=== PATIENT | male | born 1980 | race Caucasian/White ===

== ENCOUNTER 2020-05-22 13:31 | Outpatient (CLI) | payer OTHER, SELFPAY ==
--- NOTE | 2020-05-22 14:30 | NEURO_ITS ---
Patient Number: [id number] Impression: # Complains of numbness of hands. # Mild right Carpal Tunnel Syndrome. # Evolving left Carpal Tunnel Syndrome. # No ulnar neuropathy. # Normal needle/EMG exam. # Right median proximal velocity relatively slowing could be Pronator Teres Syndrome but at this stage not very diagnostic. Nerve Conduction Studies Anti Sensory Summary Table Stim Site NR Peak (ms) P-T Amp (?V) Site1 Site2 Delta-P (ms) Dist (cm) Baljit (m/s) Left Median Anti Sensory (2-3nd Digit) Wrist 2.5 92.7 Wrist 2-3nd Digit 2.5 14.0 56 Wrist 2.6 77.3 Wrist 2-3nd Digit 2.5 14.0 56 Right Median Anti Sensory (2-3nd Digit) Wrist 3.9 20.7 Wrist 2-3nd Digit 3.9 14.0 36 Wrist 2.9 4.4 Wrist 2-3nd Digit 3.9 14.0 36 Left Radial Anti Sensory (Base 1st Digit) Wrist 1.5 47.8 Wrist Base 1st Digit 1.5 0.0 Right Radial Anti Sensory (Base 1st Digit) Wrist 1.7 40.8 Wrist Base 1st Digit 1.7 0.0 Left Ulnar Anti Sensory (5th Digit) Wrist 2.3 58.6 Wrist 5th Digit 2.3 14.0 61 Right Ulnar Anti Sensory (5th Digit) Wrist 2.0 76.1 Wrist 5th Digit 2.0 14.0 70 Motor Summary Table Stim Site NR Onset (ms) O-P Amp (mV) Site1 Site2 Delta-0 (ms) Dist (cm) Baljit (m/s) Left Median Motor (Abd Poll Brev) Wrist 3.6 5.2 Elbow Wrist 4.3 28.0 65 Elbow 7.9 4.6 Right Median Motor (Abd Poll Brev) Wrist 3.1 6.6 Elbow Wrist 6.1 30.0 49 Elbow 9.2 2.5 Left Ulnar Motor (Abd Dig Minimi) Wrist 2.7 4.7 A Elbow Wrist 4.3 27.0 63 A Elbow 7.0 4.0 Right Ulnar Motor (Abd Dig Minimi) Wrist 2.2 7.8 A Elbow Wrist 4.4 29.0 66 A Elbow 6.6 7.2 F Wave Studies NR F-Lat (ms) L-R F-Lat (ms) Left Median (Mrkrs) (Abd Poll Brev) 25.78 3.13 Right Median (Mrkrs) (Abd Poll Brev) 28.91 3.13 Left Ulnar (Mrkrs) (Abd Dig Min) 26.58 1.38 Right Ulnar (Mrkrs) (Abd Dig Min) 25.20 1.38 EMG Side Muscle Nerve Root Ins Act Fibs Amp Dur Recrt Comment Right 1stDorInt Ulnar C8-T1 Nml Nml Nml Nml Nml Right Ext Indicis Radial (Post Int) C7-8 Nml Nml Nml Nml Nml Right Ext Digitorum Radial (Post Int) C7-8 Nml Nml Nml Nml Nml Right BrachioRad Radial C5-6 Nml Nml Nml Nml Nml Right PronatorTeres Median C6-7 Nml Nml Nml Nml Nml Right Abd Poll Brev Median C8-T1 Nml Nml Nml Nml Nml Left 1stDorInt Ulnar C8-T1 Nml Nml Nml Nml Nml Left Ext Indicis Radial (Post Int) C7-8 Nml Nml Nml Nml Nml Left Ext Digitorum Radial (Post Int) C7-8 Nml Nml Nml Nml Nml Left BrachioRad Radial C5-6 Nml Nml Nml Nml Nml Left PronatorTeres Median C6-7 Nml Nml Nml Nml Nml Left Abd Poll Brev Median C8-T1 Nml Nml Nml Nml Nml Right ABD Dig Min Ulnar C8-T1 Nml Nml Nml Nml Nml Left ABD Dig Min Ulnar C8-T1 Nml Nml Nml Nml Nml MTDD
== END 2020-05-22 13:32 | disposition home or self-care (01) ==
PROVIDERS: PCP Physician Assistant; Visit Provider Physician Assistant
DX: R20.0 Anesthesia of skin (principal); R20.2 Paresthesia of skin; G56.03 Carpal tunnel syndrome, bilateral upper limbs
CPT/HCPCS: 95886; 95911

== ENCOUNTER 2021-04-28 09:45 | Outpatient (CLI) | payer OTHER, SELFPAY ==
[2021-04-28 10:06] LABS: Hematocrit 49.9 % (42.0-52.0); Hemoglobin 16.9 g/dL (14.0-18.0); Mean Corpuscular HGB Conc 33.9 g/dl (32-36); Mean Corpuscular Volume 91.6 fl (80-100); Mean Platelet Volume 9.7 fl (7.4-10.4); Platelet Count Result 223 k/mm3 (150-375); Red Blood Count 5.45 M/mm3 (4.6-6.20); Red Cell Distribution Width 12.7 % (11.5-14.5); White Blood Count 7.8 K/mm3 (4.5-10.0)
[2021-04-28 10:52] LABS: Vitamin D 25 Hydroxy 54.8 ng/mL
[2021-04-28 11:36] LABS: Alanine Aminotransferase 38 U/L (4-50); Albumin Level 4.4 g/dL (3.5-5.1); Alkaline Phosphatase 62 U/L (38-126); Anion Gap 9 mmol/L (8-16); Aspartate Amino Transferase 38 U/L (17-59); Bilirubin,Total 0.7 mg/dL (0.2-1.3); Blood Urea Nitrogen 11 mg/dL (9-20); Carbon Dioxide 27 mmol/L (22-30); Chloride 100 mmol/L (98-107); Estimated Glomerular Filt Rate > 60; Glucose 90 mg/dL (75-110); Potassium 4.5 mmol/L (3.4-5.0); Sodium 136 mmol/L (137-145)
[2021-04-28 12:08] LABS: Prostate Specific Antigen 0.9 ng/mL (< OR = 4.0)
== END 2021-04-28 09:46 | disposition home or self-care (01) ==
LOC: ANHLAB 09:47
PROVIDERS: PCP Internal Medicine; Visit Provider Physician Assistant
DX: Z00.00 Encounter for general adult medical examination without abnormal findings (principal); Z12.5 Encounter for screening for malignant neoplasm of prostate; E55.9 Vitamin D deficiency, unspecified
CPT/HCPCS: 36415; 80053; 82306; 82607; 82746; 84153; 84443; 85027; G0103

== ENCOUNTER 2022-05-14 09:55 | Outpatient (CLI) | payer OTHER, SELFPAY ==
[2022-05-14 10:27] LABS: Basophils Absolute Auto 0.1 K/mm3 (0.0-0.1); Eosinophils Absolute Auto 0.3 K/mm3 (0-0.3); Eosinophils Percent Auto 4.6 % (0-4.4); Hematocrit 47.5 % (42.0-52.0); Hemoglobin 16.6 g/dL (14.0-18.0); Immature Granulocyte Absolute 0.05 K/mm3 (0.00-0.031); Immature Granulocyte Percent A 0.8 % (0-0.5); Lymphocytes Absolute Auto 1.71 K/mm3 (0.9-3.2); Lymphocytes Percent Auto 26.9 % (18.3-44.2); Mean Corpuscular HGB Conc 34.9 g/dl (32-36); Mean Corpuscular Hemoglobin 31.3 pg (26-34); Mean Corpuscular Volume 89.6 fl (80-100); Monocytes Absolute Auto 0.4 K/mm3 (0.1-0.6); Monocytes Percent Auto 6.8 % (2.6-8.5); Neutrophils Absolute Auto 3.8 K/mm3 (1.3-6.7); Neutrophils Percent Auto 58.9 % (45.5-73.1); Platelet Count Result 235 k/mm3 (150-375); Red Cell Distribution Width 12.6 % (11.5-14.5); White Blood Count 6.4 K/mm3 (4.5-10.0)
[2022-05-14 10:37] LABS: Alanine Aminotransferase 32 U/L (6-50); Albumin Level 4.4 g/dL (3.5-5.1); Alkaline Phosphatase 50 U/L (38-126); Anion Gap 9 mmol/L (8-16); Aspartate Amino Transferase 27 U/L (17-59); Bilirubin,Total 0.8 mg/dL (0.2-1.3); Blood Urea Nitrogen 15 mg/dL (9-20); Calcium 9.2 mg/dL (8.4-10.2); Carbon Dioxide 27 mmol/L (22-30); Chloride 104 mmol/L (98-107); Estimated Glomerular Filt Rate > 60; Glucose 99 mg/dL (65-110); Potassium 4.3 mmol/L (3.4-5.0); Sodium 140 mmol/L (137-145)
[2022-05-14 11:40] LABS: Folic Acid 11.4 ng/mL (2.76->20)
== END 2022-05-14 09:56 | disposition home or self-care (01) ==
LOC: ANHLAB 09:56
PROVIDERS: PCP Physician Assistant; Visit Provider Physician Assistant
DX: Z12.5 Encounter for screening for malignant neoplasm of prostate (principal); Z00.00 Encounter for general adult medical examination without abnormal findings
CPT/HCPCS: 36415; 80053; 82607; 82746; 84153; 84443; 85025; G0103

== ENCOUNTER 2023-01-31 16:44 | Outpatient (CLI) | payer OTHER, SELFPAY ==
[2023-01-31 17:50] LABS: Strep Group A RT-PCR NOT DETECTED (Negative)
[2023-01-31 18:01] LABS: SARS-CoV-2 RNA PCR Negative
== END 2023-01-31 16:45 | disposition home or self-care (01) ==
LOC: ANHLAB 16:45
PROVIDERS: PCP Physician Assistant; Visit Provider Physician Assistant
DX: J02.9 Acute pharyngitis, unspecified (principal)
CPT/HCPCS: 87651; U0003; U0005

== ENCOUNTER 2023-06-10 09:37 | Outpatient (CLI) | payer OTHER, SELFPAY ==
[2023-06-10 09:59] LABS: Basophils Absolute Auto 0.1 K/mm3 (0.0-0.1); Basophils Percent Auto 1.3 % (0.2-1.2); Eosinophils Absolute Auto 0.4 K/mm3 (0-0.3); Eosinophils Percent Auto 5.6 % (0-4.4); Hematocrit 46.7 % (42.0-52.0); Hemoglobin 16.3 g/dL (14.0-18.0); Immature Granulocyte Absolute 0.14 K/mm3 (0.00-0.031); Immature Granulocyte Percent A 1.8 % (0-0.5); Lymphocytes Absolute Auto 1.77 K/mm3 (0.9-3.2); Lymphocytes Percent Auto 23.2 % (18.3-44.2); Mean Corpuscular HGB Conc 34.9 g/dl (32-36); Mean Corpuscular Hemoglobin 30.9 pg (26-34); Mean Corpuscular Volume 88.4 fl (80-100); Mean Platelet Volume 9.8 fl (7.4-10.4); Monocytes Absolute Auto 0.5 K/mm3 (0.1-0.6); Monocytes Percent Auto 5.9 % (2.6-8.5); Neutrophils Absolute Auto 4.7 K/mm3 (1.3-6.7); Neutrophils Percent Auto 62.2 % (45.5-73.1); Platelet Count Result 198 k/mm3 (150-375); Red Blood Count 5.28 M/mm3 (4.6-6.20); Red Cell Distribution Width 11.9 % (11.5-14.5); White Blood Count 7.6 K/mm3 (4.5-10.0)
[2023-06-10 10:41] LABS: Alanine Aminotransferase 53 U/L (6-50); Albumin Level 4.5 g/dL (3.5-5.1); Alkaline Phosphatase 57 U/L (38-126); Anion Gap 10 mmol/L (8-16); Aspartate Amino Transferase 37 U/L (17-59); Bilirubin,Total 0.6 mg/dL (0.2-1.3); Blood Urea Nitrogen 9 mg/dL (9-20); Calcium 8.9 mg/dL (8.4-10.2); Carbon Dioxide 26 mmol/L (22-30); Chloride 104 mmol/L (98-107); Cholesterol 214 mg/dL (0-200); Estimated Glomerular Filt Rate > 60; Glucose 99 mg/dL (65-110); HDL Direct 39 mg/dL; LDL Cholesterol Direct 137 mg/dL; Potassium 3.9 mmol/L (3.4-5.0); Sodium 140 mmol/L (137-145); Triglycerides 174 mg/dL (<150)
[2023-06-10 10:54] LABS: Prostate Specific Antigen 0.9 ng/mL (< OR = 4.0)
[2023-06-10 11:30] LABS: Folic Acid 19.2 ng/mL (2.76->20)
[2023-06-10 15:09] LABS: Vitamin D 25 Hydroxy 45.1 ng/mL
== END 2023-06-10 09:38 | disposition home or self-care (01) ==
LOC: ANHLAB 09:40
PROVIDERS: PCP Physician Assistant; Visit Provider Physician Assistant
DX: Z00.00 Encounter for general adult medical examination without abnormal findings (principal); Z12.5 Encounter for screening for malignant neoplasm of prostate; E55.9 Vitamin D deficiency, unspecified
CPT/HCPCS: 36415; 80053; 80061; 82306; 82607; 82746; 84153; 84443; 85025; G0103

== ENCOUNTER 2023-06-30 09:44 | Outpatient (CLI) | payer OTHER, SELFPAY ==
--- NOTE | 2023-07-25 14:22 | WPDSLEEPSTUD ---
Sleep Study Date of Study: 06/30/23 Ordering Provider: Kar Matta PA-C Interpreting Physician: Patti Menon DO Sleep Study Type: Split Polysomnogram Height: 1.7 m Weight: 92.986 kg Body Mass Index: 32.1 Neck Circumference (inches): 16 [place]: 19 Reason for Sleep Study Diagnosed with ANITA in 2012. Daytime hypersomnia and difficulty staying/maintaining sleep despite PAP use. Sleep History The patient is a 43-year-old male with hypertension, GERD, irritable bowel syndrome, low testosterone, history of tobacco use and previously diagnosed sleep apnea that had a sleep study ordered by his primary care to optimize his PAP settings. the patient constantly awakens from sleep short of breath. He frequently awakens at night with heartburn, belching or cough. He constantly snores loudly enough that others complain. He constantly has trouble sleeping when he has a cold. He frequently wakes up gasping for air throughout the night. He frequently has breathing problems at night observed by himself or others. He constantly sweats excessively at night. He frequently has heart palpitations or irregular heartbeats during the night. He constantly falls asleep during the day but never while driving. He denies cataplexy. He constantly has trouble at school or work due to sleepiness. He occasionally feels unable to move when waking up or falling asleep. He constantly experiences vivid dreamlike scenes upon awakening or falling asleep. He denies feeling afraid of going to sleep. He constantly has nightmares and frequently remembers his dreams. He constantly has thoughts racing through his mind. He rarely feels sad or depressed. He occasionally has anxiety. He constantly has muscular tension. He frequently notices parts of his body jerk. He occasionally kicks during the night. He occasionally has crawling and aching feelings in his legs and occasionally has leg pain during the night. He rarely grinds his teeth during sleep. He frequently is bothered by pain during the day but rarely awakened by pain during the night. He occasionally wakes up feeling stiff in the morning. He constantly wakes up with sore or achy muscles. He constantly wakes up with pain in the neck, spine or other joints. He goes to bed between 10-11 p.m. on weekdays and between 11:00 p.m. to 1:00 a.m. on the weekends. He can take him several hours to fall asleep. He wakes up 4-6 times throughout the night for unknown reasons in a can take up to several hours to fall back asleep. He wakes up at 7:00 a.m. on weekdays and between 11 a.m. to noon on the weekends. He typically gets 4-6 hours of sleep per night. He will stay in bed for 15 minutes after waking up in the morning on weekdays and will stay several hours in bed on the weekends. He currently lives with his and 2 children. He will consume caffeinated soda within 2 hours of bedtime. He denies engaging in physical exercise before bedtime. He will watch television before falling asleep. He will take naps in the afternoon or the evening but they are not refreshing. He consumes 3 cans of caffeinated soda per day. He denies tobacco, alcohol and recreational drug use. [facility] Family History Family History Father Family history of throat cancer Social History Social History Smoking status: Former smoker Second hand tobacco smoke exposure: No Smoking end date: 10/17/15 Alcohol intake: never Substance use: never Current Housing: Decline to Answer Concerned About Future Housing: Decline to Answer Difficulty Paying Gas/Electric Bills: Decline to Answer Difficulty Paying for Meds: Decline to Answer Currently Unemployed: Decline to Answer Education: Decline to Answer Difficulty w/ Childcare or Family Care: Decline to Answer Medications Home Medications Medic
[2023-07-25 14:29] VITALS: BMI 32.1
== END 2023-07-01 07:10 | disposition home or self-care (01) ==
LOC: ANHCSM 09:44
PROVIDERS: PCP Physician Assistant; Visit Provider Physician Assistant
DX: G47.10 Hypersomnia, unspecified (principal); G47.33 Obstructive sleep apnea (adult) (pediatric); G47.61 Periodic limb movement disorder; Z72.821 Inadequate sleep hygiene
CPT/HCPCS: 95811

== ENCOUNTER 2024-11-05 13:31 | Emergency (ER) | payer OTHER, SELFPAY ==
--- NOTE | ~2024-11-05 | XR_ITS ---
Right ankle Technique: AP, oblique, and lateral views were obtained. Clinical History: Pain Findings: There is a transverse, acute, nondisplaced fracture the distal fibula, essentially at the l evel of the ankle mortise.. Ankle mortise and other visualized joint spaces are preserved. Lateral so ft tissue swelling noted. Impression: Subtle acute, nondisplaced transverse fracture of the distal fibula, as detailed above. Overlying lateral soft tissue swelling. Reviewed, dictated and finalized at location [facility]. [facility] [employer] RO[employer] ATTENDANT Impression: Subtle acute, nondisplaced transverse fracture of the distal fibula, as detaile d above. Overlying lateral soft tissue swelling.
[2024-11-05 13:36] VITALS: BP 154/94; PULSE 82; RESP 14; TEMP 36.8; O2SAT 100
--- NOTE | 2024-11-05 13:43 | ED_ITS ---
HPI - Extremity Injury (Lower) General Chief Complaint: Extremity Injury, Lower <Alissa Clements APRN - Last Filed: 11/05/24 13:44> Stated Complaint: right ankle pain <Alissa Clements APRN - Last Filed: 11/05/24 13:44> Time Seen by Provider: 11/05/24 13:40 <Alissa Clements APRN - Last Filed: 11/05/24 13:44> Focused HPI: Patient is a 44-year-old male who presents to the ER with complaints of right ankle pain. He reports he fell on the ice yesterday. Since his fall he endorses significant right ankle swelling and pain. He endorses increased pain with manipulation or movement. Patient reports he has broken his right ankle in the past. He denies any calf pain, recent fevers, shortness of breath. Patient still has full range of motion. GENERAL: Well-appearing, well-nourished, and in no acute distress. HEAD: Normocephalic, atraumatic. CHEST: Clear to auscultation. ?No respiratory distress. HEART: Regular rate and rhythm.? NEURO: ?Alert and oriented x3. Patient screened in triage and initial orders placed.? ?Additional care and disposition to be based upon?diagnostic testing and treatment. <Alissa Clements APRN - Last Filed: 11/05/24 13:44> History of Present Illness HPI Narrative: I agree with the above HPI <Nikko Bernabe MD - Last Filed: 11/05/24 19:06> Related Data Home Medications: Home Medications ?Medication ?Instructions ?Recorded ?Confirmed ?Last Taken ?Type benzoyl peroxide 10 % topical bar 1 applic topical DAILY 10/23/19 06/11/23 Unknown History testosterone cypionate 100 mg/mL 50 mg IM MONTHLY 10/23/19 06/11/23 Unknown History intramuscular oil amitriptyline 10 mg tablet 30 mg PO QHS 04/28/21 06/11/23 Unknown History calcium polycarbophil 625 mg tablet 1,250 mg PO BID 04/28/21 06/11/23 Unknown History cholecalciferol (vitamin D3) 50 50 mcg PO DAILY 04/28/21 06/11/23 Unknown Hist ory mcg (2,000 unit) capsule <Alissa Clements APRN - Last Filed: 11/05/24 13:44> Allergies/Adverse Reactions: Allergies Allergy/AdvReac Type Severity Reaction Status Date / Time No Known Allergies Allergy Verified 11/05/24 14:40 <Alissa Clements APRN - Last Filed: 11/05/24 13:44> Review of Systems Review of Systems: All systems reviewed & are unremarkable except as noted in HPI and below <Nikko Bernabe MD - Last Filed: 11/05/24 19:06> PMFSH Family History Family History: Family History Father Family history of throat cancer <Alissa Clements APRN - Last Filed: 11/05/24 13:44> Social History Social History: Social History Smoking status: Former smoker Second hand tobacco smoke exposure: No Smoking end date: 10/17/15 Alcohol intake: never Substance use: never Current Housing: Decline to Answer Concerned About Future Housing: Decline to Answer Difficulty Paying Gas/Electric Bills: Decline to Answer Difficulty Paying for Meds: Decline to Answer Currently Unemployed: Decline to Answer Education: Decline to Answer Difficulty w/ Childcare or Family Care: Decline to Answer <Alissa Clements APRN - Last Filed: 11/05/24 13:44> Exam Narrative: APPEARANCE: Well appearing, no pain, no distress, well-nourished. HEAD: normocephalic, atraumatic. EYES: PERRLA/EOMI, conjunctivae clear. NOSE: Normal no drainage EARS:TMS clear with good light reflex. THROAT: Pharynx clear, no exudate. NECK: Supple. No adenopathy, no masses. RESPIRATORY: Airway patent, respirations nonlabored. Clear to auscultation bilaterally, no rales, rhonchi, wheezing. CARDIOVASCULAR: Regular rate and rhythm without murmurs rubs or gallops. ABDOMINAL: Soft, nontender, nondistended, normal bowel sounds MUSCULOSKELETAL: Right lower extremity tenderness to palpation, neurovascularly intact NEURO: Alert. Cranial nerves II through XII intact. Grossly intact SKIN: Warm, dry. Normal Color <Nikko Bernabe MD - Last Filed: 11/05/24 19:06> Course Vital Signs Vital signs: Vital Signs Temperature 98.3 F 11/05/24 13:36 Pulse Rate 82 11/05/24 13:36 Respiratory Rate 14 11/05/24 13:36 Blood Pressure 154/94 H 11/05/24 13:36 Pulse Oximetry 100 11/05/24 13:36 Temperature 98.3 F 11/05/24 13:36 Pulse Rate 82 11/05/24 13:36 Respiratory Rate 14 11/05/24 13:36 Blood Pressure 154/94 H 11/05/24 13:36 Pulse Oximetry 100 11/05/24 13:36 <Alissa Clements SLIP COVER CUTTER - Last Filed: 11/05/24 13:44> Vital Signs Temperature 98.3 F 11/05/24 13:36 Pulse Rate 82 11/05/24 13:36 Respiratory Rate 14 11/05/24 13:36 Blood Pressure 154/94 H 11/05/24 13:36 Pulse Oximetry 100 11/05/24 13:36 Temperature 98.3 F 11/05/24 13:36 Pulse Rate 82 11/05/24 13:36 Respiratory Rate 14 11/05/24 13:36 Blood Pressure 154/94 H 11/05/24 13:36 Pulse Oximetry 100 11/05/24 13:36 <Nikko Bernabe MD - Last Filed: 11/05/24 19:06> MDM - Extremity Injury (Lower) MDM Narrative Medical decision making narrative: 44 old male presents to the emergency department for evaluation for right ankle pain. Patient had a fall last night and slipped on the ice. Patient denies striking his head denies loss of consciousness. X-ray was concerning for a nondisplaced fibular fracture. Patient was placed in a short-leg splint provided crutches for limited weight-bearing. Patient was strongly encouraged close follow-up with Orthopedics. Patient was provided additional medication for pain control for home. All questions concerns were addressed. <Nikko Bernabe MD - Last Filed: 11/05/24 19:06> Differential Diagnosis Differential diagnosis: Likely ankle sprain and strain, acute internal derangement of knee, fracture of femur, ankle fracture and other <Nikko Bernabe MD - Last Filed: 11/05/24 19:06> Imaging Data Radiologist's impression: Impressions Ankle X-Ray 11/05/24 13:53 Impression: Subtle acute, nondisplaced transverse fracture of the distal fibula, as detailed above. Overlying lateral soft tissue swelling. <Nikko Bernabe MD - Last Filed: 11/05/24 19:06> Discharge Plan Discharge Clinical Impression: Fracture of distal end of fibula <Alissa Clements APRN - Last Filed: 11/05/24 13:44> Patient Disposition: Home, Self-Care <Alissa Clements APRN - Last Filed: 11/05/24 13:44> Condition: Stable <Alissa Clements APRN - Last Filed: 11/05/24 13:44> Instructions: Antibiotic Form, Ankle Fracture (ED), Crutch Instructions (ED), Splint Care (ED) <Alissa Clements APRN - Last Filed: 11/05/24 13:44> Additional Instructions: Splint care as directed. Crutches for nonweightbearing. Have close follow-up with Orthopedics. Ibuprofen for pain control. Niotaze as needed for additional pain control. You have any worsening symptoms please call or return to the emergency department. <Alissa Clements APRN - Last Filed: 11/05/24 13:44> Patient Language: Uzbek <Alissa Clements APRN - Last Filed: 11/05/24 13:44> Prescriptions: New hydrocodone-acetaminophen 5-325 mg tablet 1 tablet PO Q12H PRN (Reason: pain) Qty: 14 0RF No Action loperamide 2 mg capsule 2 mg PO BID PRN (Reason: loose stool) Qty: 180 1RF lisinopril-hydrochlorothiazide 10-12.5 mg tablet 1 tablet PO DAILY Qty: 90 0RF testosterone cypionate 100 mg/mL oil 50 mg IM MONTHLY benzoyl peroxide 10 % bar 1 applic TOPICAL DAILY calcium polycarbophil 625 mg tablet 1,250 mg PO BID amitriptyline 10 mg tablet 30 mg PO QHS cholecalciferol (vitamin D3) 50 mcg (2,000 unit) capsule 50 mcg PO DAILY <Alissa Clements APRN - Last Filed: 11/05/24 13:44> Follow-up/Referrals: Dandy Agarwal MD [Physician] - Sigrid,Kar Pete PA-C [Physician Editing Computer Publisher] - <Alissa Clements APRN - Last Filed: 11/05/24 13:44>
[2024-11-05] MEDS: HYDROcodone/acetaminophen (*CRX) 5-325 MG TABLET 1 TAB PO (14:37)
[2024-11-05] MEDS: KETOROLAC (*BKC) 60 MG/2 ML VIAL IM (14:38)
--- OUTSIDE RECORDS SUMMARY | 2024-11-08 13:36 | XMS_ITS | Continuity of Care Document ---
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 It does not include entries that were removed or entered in error. 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 [facility] Carpal Tunnel Syndrome (SCT 52421184) Active Condition [facility] Cervicalgia Active Condition [facility] Chronic low back pain Active [place] [place] Chronic neck pain Active Condition [facility] Diarrhea (SCT 28809245) Active Condition [facility] Elevated blood-pressure reading without diagnosis of hypertension Active Condition [facility] Elevated liver enzymes level Active Condition [facility] Erectile dysfunction (SNOMED CT 272782494) Active Condition [facility] H/O: migraine Active Condition [place] Headache (SCT 54246648) Active Condition [facility] Hemorrhoids Active Condition [facility] HTN - Hypertension (SCT 98174396) Active Condition [facility] Low Back Pain (SCT 830515805) Active Condition [facility] Obesity (SCT 551934159) Active Condition [facility] Obstructive Sleep Apnea Syndrome (SCT 35378464) Active Condition [facility] Overweight Active Condition [place] Past history of procedure Active Condition May 09, 2020 Entered By: JOSH OAKLEY Comment: 06/2018 laparoscopic cholecystectomy [facility] Testicular Hypofunction (SCT 684731804) Active Condition [facility] Vitamin D Deficiency (SCT 4890142) Active Condition [facility] Otitis externa Inactive Condition 06/08/2021 [facility] upper respiratory infection acute Inactive Condition [facility] herniated intervertebral disc lumbar Active Condition [facility] herniated intervertebral disc Active Condition [facility] hemorrhoids external Active Condition [facility] visit for: vasectomy status Active Condition [facility] herniated disc (L5 - S1) central Active Condition [facility] lower back pain Active Condition [facility] current smoker Active Condition [facility] viral syndrome Inactive Condition [facility] cough Inactive Condition [facility] visit for: administrative purpose Inactive Condition [facility] Outpatient Physician Consultation Active Condition [facility] visit for: sterilization Inactive Condition [facility] astigmatism regular Active Condition [facility] refractive error - hypermetropia Active Condition [facility] sore throat Inactive Condition [facility] visit for: issue medical certificate Inactive Condition [facility] acne Inactive Condition [facility] visit for: pre-employment physical Inactive Condition [facility] Patient Education - Infertility Active Condition [facility] Blood Pressure Isolated Elevated Active Condition [facility] Intervention And Counseling On Cessation Of Tobacco Use Active Condition [facility] Patient Counseling: Inactive Condition [facility] visit for: services physical Active Condition [facility] Diagnosis: ICD-10-CM K64.9 Unspecified hemorrhoids Active Diagnosis [facility] Diagnosis: ICD-10-CM E29.1 Testicular hypofunction Active Diagnosis [facility] Diagnosis: ICD-10-CM G47.33 Obstructive sleep apnea (adult) (pediatric) Active Diagnosis [facility] Diagnosis: ICD-10-CM L03.90 Cellulitis, unspecified Active Diagnosis [facility] Medications Combined list of outpatient medications from Department of Defense and Veterans Affairs facilities.Medications provided include 1) outpatient medications from the last 15 months, and 2) patient-reported medications. Medication Details Route Status Patient Instructions Prescription Expires Prescription Number Last Dispense Date Ordering Provider Order Date Order Qty Source AMOXICILLIN TRIHYDRATE 875MG/CLAVU LANATE K 125MG TAB TAKE 1 TABLET BY MOUTH TWICE A DAY TAKE WITH FOOD. TAKE UNTIL GONE UNLESS OTHERWIS E DIRECTED . ORAL 09/07/2023 [id number] ME MICHAEL TTISA 2022 14 [facility] GABAPENTIN 300MG CAP TAKE 1 CAPSULE BY MOUTH THREE TIMES A DAY ORAL ACTIVE RAJAT VOGEL 2015 [place] HYDROCHLORO THIAZIDE 12.5MG/WYATT NOPRIL 10MG TAB TAKE ONE TABLET BY MOUTH EVERY MORNING ORAL ACTIVE PACE,VICT OR M 2019 [facility] METHOCARBAM [place] 750MG TAB TAKE ONE TABLET BY MOUTH EVERY DAY NEEDED ORAL ACTIVE RAJAT VOGEL 2015 [place] OXYCODONE HCL 5MG TAB TAKE TWO TABLETS BY MOUTH EVERY 4 HOURS ORAL ACTIVE PAT MILLER 2015 [place] OXYCODONE HCL 5MG TAB TAKE TWO TABLETS BY MOUTH EVERY 4 HOURS NEEDED ORAL ACTIVE RAJAT VOGEL 2015 [place] SULFAMETHOX AZOLE 800MG/TRIME THOPRIM 160MG TAB TAKE 1 TABLET BY MOUTH EVERY 12 HOURS FOR SKIN OR SOFT TISSUE INFECTIO N TAKE WITH WATER/AV OID SUNLIGHT . ORAL 10/05/2023 [id number] ANGELLA MARTIN 2022 14 [facility] TADALAFIL TAB TAKE BY MOUTH PRN ORAL ACTIVE RAJAT VOGEL 2015 [place] TESTOSTERON E (testostero ne), 10 MG (2%), GEL BIOLOGIST, TRANSDERM, ACTAVIS/TEV A, 60 g CANISTER Active [id number] 2023 180 Pharmac y [facility] Service [facility]ilit y TESTOSTERON E (testostero ne), 10 MG (2%), GEL BIOLOGIST, TRANSDERM, ACTAVIS/TEV A, 60 g CANISTER Active [id number] 2023 180 Pharmac y Data Transac tion Service Facilit y TESTOSTERON E ENANTHATE INJ,SOLN INJECT DEEP INTRAMUS CULARLY INTRAM USCULA R ACTIVE MICHAELME TTISA 2021 [facility] TOPIRAMATE 50MG TAB TAKE ONE TABLET BY MOUTH EVERY DAY ORAL ACTIVE RAJAT VOGEL 2015 [place] Allergies, Adverse Reactions, Alerts Combined list of allergies from Department of Defense and Veterans Affairs facilities. It does not include entries that were removed or entered in error. Substance Category Reaction Severity Reaction type Status Date Reported Comments Source No Known Allergies Drug allergy (disorder) active 11/18/2009 [facility] [employer] Immunizations Combined list of available immunizations from the Department of Defense and Veterans Affairs facilities. Immunization Series Date Given Administered By Site Reaction Lot Number CVX Code Drug Bag Bleacher Status Comments Source TDAP 2021 NONE 115 complet ed [facility] COVID-19 (PFIZER), MRNA, LNP-S, PF, 30 MCG/0.3 ML DOSE 2 2020 208 complet [facility] COVID-19 (PFIZER), MRNA, LNP-S, PF, 30 MCG/0.3 ML DOSE 2 2020 208 complet [facility] COVID-19, mRNA, LNP-S, PF, 30 mcg/0.3 mL dose 2020 [facility] [employer] (PFR) Not Given COVID-19, mRNA, LNP-S, PF, 30 mcg/0.3 mL dose [facility] COVID-19 (PFIZER), MRNA, LNP-S, PF, 30 MCG/0.3 ML DOSE 1 2020 208 complet [facility] COVID-19 (PFIZER), MRNA, LNP-S, PF, 30 MCG/0.3 ML DOSE 1 2020 208 complet [facility] N COVID-19, mRNA, LNP-S, PF, 30 mcg/0.3 mL dose 2020 [facility] [employer] [place] (PFR) Not Given COVID-19, mRNA, LNP-S, PF, 30 mcg/0.3 mL dose [facility] influenza, live, intranasal, quadrivalent 7 2013 [id number] [employer] (MED) complet ed influenza , live, intranasa l, quadrival ent DoD influenza, live, intranasal, quadrivalent 1 2012 [id number] [employer] (MED) complet ed influenza , live, intranasa l, quadrival ent DoD measles virus vaccine 0 2012 05 () Not Given measles virus vaccine DoD rubella virus vaccine 0 2012 06 () Not Given rubella virus vaccine DoD mumps virus vaccine 0 2012 07 () Not Given mumps virus vaccine DoD influenza virus vaccine, live, attenuated, for intranasal use 5 2011 [id number] [employer] (MED) complet ed influenza virus vaccine, live, attenuate d, for intranasa l use DoD TDAP 1 2011 115 complet ed [facility] influenza virus vaccine, live, attenuated, for intranasal use 4 2010 [id number] 111 [employer] (MED) complet ed influenza virus vaccine, live, attenuate d, for intranasa l use DoD anthrax vaccine 2 2009 [id number] [employer] ([facility]) complet ed anthrax vaccine DoD anthrax vaccine 1 2009 [id number] [employer] [place] ([facility]) complet ed anthrax vaccine DoD typhoid Vi capsular polysaccharid e vaccine 1 2009 [id number] 101 Sanofi Pasteur ([facility]) complet ed typhoid Vi capsular polysacch aride vaccine DoD influenza virus vaccine, live, attenuated, for intranasal use 1 2009 [id number] 111 [employer] (MED) complet ed influenza virus vaccine, live, attenuate d, for intranasa l use DoD Novel Influenza-H1N 1-09, live virus for nasal administratio n 1 2008 [id number] 125 [employer] (MED) complet ed Novel Influenza -[id number], live virus for nasal administr ation DoD influenza virus vaccine, live, attenuated, for intranasal use 1 2008 [id number] 111 [employer] (MED) complet ed influenza virus vaccine, live, attenuate d, for intranasa l use DoD hepatitis A and hepatitis B vaccine 3 2008 [id number] 104 [employer] (SKB) complet ed hepatitis A and hepatitis B vaccine DoD influenza virus vaccine, split virus (incl. purified surface antigen)-reti red CODE 1 2007 [id number] 15 Sanofi Pasteur (PMC) complet ed influenza virus vaccine, split virus (incl. purified surface antigen)- retired CODE DoD varicella virus vaccine 2 2007 [id number] 21 Merck (MSD) complet ed varicella virus vaccine DoD hepatitis A and hepatitis B vaccine 2 2007 [id number] 104 [employer] (SKB) complet ed hepatitis A and hepatitis B vaccine DoD measles, mumps and rubella virus vaccine 1 2007 03 () Not Given measles, mumps and rubella virus vaccine DoD varicella virus vaccine 1 2007 [id number] 21 Merck (MSD) complet ed varicella virus vaccine DoD hepatitis A and hepatitis B vaccine 1 2007 [id number] 104 ERPLY (SKB) complet ed hepatitis A and hepatitis B vaccine DoD tuberculin skin test; purified protein derivative solution, intradermal 1 2007 Unknown, Provider [id number] Sanofi Pasteur (PMC) complet ed tuberculi n skin test; purified protein derivativ e solution, intraderm al DoD poliovirus vaccine, inactivated 1 2007 [id number] 10 Sanofi Pasteur (PMC) complet ed polioviru s vaccine, inactivat ed DoD meningococcal polysaccharid e (groups A, C, Y and W-135) diphtheria toxoid conjugate vaccine (MCV4P) 1 2007 [id number] 114 Sanofi Pasteur (PMC) complet ed meningoco ccal polysacch aride (groups A, C, Y and W-135) diphtheri a toxoid conjugate vaccine (MCV4P) DoD tetanus toxoid, reduced diphtheria toxoid, and acellular pertu is vaccine, adsorbed 2007 [id number] 115 Sanofi Pasteur (PMC) complet ed tetanus toxoid, reduced diphtheri a toxoid, and acellular pertussis vaccine, adsorbed DoD Results Combined list of recent chemistry, hematology and other laboratory results from Department of Defense and Veterans Affairs, ranging from 15 months to all on record, depending upon the facility. Order Name Results Value Reference Range Date Interpretation Specimen Comments Source COVID-19 SCREENIN G PANEL (STL-PB) SARS-COV-2 (COVID-19) RNA [PRESENCE] IN RESPIRATOR Y SPECIMEN BY KAT WITH PROBE DETECTION Not Detected 09/05 Specimen Type: NASOPHARYNX Comment: Qualitative real-time PCR and RT-PCR to detect viral RNA. A negative result does not preclude infection with the agent(s) tested and should not be used as the sole basis for treatment or other patient management decisions. If negative, but symptoms persist, consider re-testing. Positive results do not rule out bacterial infection or co-infectio n with other viruses. All results must be combined with clinical observation s, patient history, and epidemiolog ical information for final interpretat ion. Ordering Provider: OSITO MARTIN Report Released Date/Time: Sep 05, 2023 01:24 PM Reporting Lab: [facility] [address] [facility] [address] Performing Lab: [facility] [address] [facility] [address] [facility] COMPREHE NSIVE METABOLI C PANEL CREATININE [MASS/VOLU ME] IN SERUM OR PLASMA 1.06 mg/dL 0.7 - 1.3 09/05 Specimen Type: PLASMA Comment: No hemolysis noted. Ordering Provider: MIGEL CUNNINGHAM Report Released Date/Time: Sep 05, 2023 11:05 AM Reporting Lab: [facility] [address] [facility] [address] Performing Lab: [facility] [address] [facility] [address] [facility] COMPREHE NSIVE METABOLI C PANEL UREA NITROGEN [MASS/VOLU ME] IN SERUM OR PLASMA 12.7 mg/dL 9.0 - 25.0 09/05 Specimen Type: PLASMA Comment: No hemolysis noted. Ordering Provider: MIGEL CUNNINGHAM Report Released Date/Time: Sep 05, 2023 11:05 AM Reporting Lab: [facility] [address] [facility] [address] Performing Lab: [facility] [address] [facility] [address] [facility] COMPREHE NSIVE METABOLI C PANEL GLUCOSE [MASS/VOLU ME] IN SERUM OR PLASMA 94 mg/dL 72 - 99 09/05 Specimen Type: PLASMA Comment: No hemolysis noted. Ordering Provider: MIGEL CUNNINGHAM Report Released Date/Time: Sep 05, 2023 11:05 AM Reporting Lab: [facility] [address] [facility] [address] Performing Lab: [facility] [address] [facility] [address] [facility] COMPREHE NSIVE METABOLI C PANEL SODIUM [MOLES/VOL UME] IN SERUM OR PLASMA 139 meq/L 136 - 145 09/05 Specimen Type: PLASMA Comment: No hemolysis noted. Ordering Provider: MIGEL CUNNINGHAM Report Released Date/Time: Sep 05, 2023 11:05 AM Reporting Lab: [facility] [address] [facility] [address] Performing Lab: [facility] [address] [facility] [address] [facility] COMPREHE NSIVE METABOLI C PANEL POTASSIUM [MOLES/VOL UME] IN SERUM OR PLASMA 4.5 meq/L 3.5 - 5 09/05 Specimen Type: PLASMA Comment: No hemolysis noted. Ordering Provider: MIGEL CUNNINGHAM Report Released Date/Time: Sep 05, 2023 11:05 AM Reporting Lab: [facility] [address] [facility] [address] Performing Lab: [facility] [address] [facility] [address] [facility] COMPREHE NSIVE METABOLI C PANEL CHLORIDE [MOLES/VOL UME] IN SERUM OR PLASMA 100 meq/L 98 - 107 09/05 Specimen Type: PLASMA Comment: No hemolysis noted. Ordering Provider: MIGEL CUNNINGHAM Report Released Date/Time: Sep 05, 2023 11:05 AM Reporting Lab: [facility] [address] [facility] [address] Performing Lab: [facility] [address] [facility] [address] [facility] COMPREHE NSIVE METABOLI C PANEL CARBON DIOXIDE, TOTAL [MOLES/VOL UME] IN SERUM OR PLASMA 29 meq/L 22 - 31 09/05 Specimen Type: PLASMA Comment: No hemolysis noted. Ordering Provider: MIGEL CUNNINGHAM Report Released Date/Time: Sep 05, 2023 11:05 AM Reporting Lab: [facility] [address] [facility] [address] Performing Lab: [facility] [address] [facility] [address] [facility] COMPREHE NSIVE METABOLI C PANEL CALCIUM [MASS/VOLU ME] IN SERUM OR PLASMA 9.6 mg/dL 8.4 - 10.4 09/05 Specimen Type: PLASMA Comment: No hemolysis noted. Ordering Provider: MIGEL CUNNINGHAM Report Released Date/Time: Sep 05, 2023 11:05 AM Reporting Lab: [facility] [address] [facility] [address] Performing Lab: [facility] [address] [facility] [address] [facility] COMPREHE NSIVE METABOLI C PANEL PROTEIN [MASS/VOLU ME] IN SERUM OR PLASMA 7.9 g/dL 6 - 8.6 09/05 Specimen Type: PLASMA Comment: No hemolysis noted. Ordering Provider: MIGEL CUNNINGHAM Report Released Date/Time: Sep 05, 2023 11:05 AM Reporting Lab: [facility] [address] [facility] [address] Performing Lab: [facility] [address] [facility] [address] [facility] COMPREHE NSIVE METABOLI C PANEL ALBUMIN [MASS/VOLU ME] IN SERUM OR PLASMA 5.4 g/dL 3.4 - 5 09/05 H Specimen Type: PLASMA Comment: No hemolysis noted. Ordering Provider: MIGEL CUNNINGHAM Report Released Date/Time: Sep 05, 2023 11:05 AM Reporting Lab: [facility] [address] [facility] [address] Performing Lab: [facility] [address] [facility] [address] [facility] COMPREHE NSIVE METABOLI C PANEL BILIRUBIN. TOTAL [MASS/VOLU ME] IN SERUM OR PLASMA 1.2 mg/dL 0.2 - 1.2 09/05 Specimen Type: PLASMA Comment: No hemolysis noted. Ordering Provider: MIGEL CUNNINGHAM Report Released Date/Time: Sep 05, 2023 11:05 AM Reporting Lab: [facility] [address] [facility] [address] Performing Lab: [facility] [address] [facility] [address] [facility] COMPREHE NSIVE METABOLI C PANEL ALKALINE PHOSPHATAS E [ENZYMATIC ACTIVITY/V OLUME] IN SERUM OR PLASMA 58 U/L 40 - 150 09/05 Specimen Type: PLASMA Comment: No hemolysis noted. Ordering Provider: MIGEL CUNNINGHAM Report Released Date/Time: Sep 05, 2023 11:05 AM Reporting Lab: [facility] [address] [place] [phone] Performing Lab: [address] [address] [facility] COMPREHE NSIVE METABOLI C PANEL ASPARTATE AMINOTRANS FERASE [ENZYMATIC ACTIVITY/V OLUME] IN SERUM OR PLASMA 27 U/L 5 - 34 09/05 Specimen Type: PLASMA Comment: No hemolysis noted. Ordering Provider: MIGEL CUNNINGHAM Report Released Date/Time: Sep 05, 2023 11:05 AM Reporting Lab: [facility] [address] [place] [phone] Performing Lab: [facility] [address] [facility] [address] [facility] COMPREHE NSIVE METABOLI C PANEL ALANINE AMINOTRANS FERASE [ENZYMATIC ACTIVITY/V OLUME] IN SERUM OR PLASMA 46 U/L 8 - 40 09/05 H Specimen Type: PLASMA Comment: No hemolysis noted. Ordering Provider: MIGEL CUNNINGHAM Report Released Date/Time: Sep 05, 2023 11:05 AM Reporting Lab: [facility] [address] [place] [phone] Performing Lab: [facility] [address] [place] [phone] [facility] COMPREHE NSIVE METABOLI C PANEL GLOMERULAR FILTRATION RATE/1.73 SQ M.PREDICTE D [VOLUME RATE/AREA] IN SERUM, PLASMA OR BLOOD BY CREATININE -BASED FORMULA (CKD-EPI 2020) 89.3 60 09/05 Specimen Type: PLASMA Comment: No hemolysis noted. Ordering Provider: MIGEL CUNNINGHAM Report Released Date/Time: Sep 05, 2023 11:05 AM Reporting Lab: [place] [address] Performing Lab: [address] [phone] CBC LEUKOCYTES [#/VOLUME] IN BLOOD BY AUTOMATED COUNT 8.6 10*3/uL 3.6 - 11.2 09/05 Specimen Type: BLOOD No comment entered. Ordering Provider: MIGEL CUNNINGHAM Report Released Date/Time: Sep 05, 2023 11:05 AM Reporting Lab: [address] [address] Performing Lab: [address] [phone] [place] [address] CBC ERYTHROCYT ES [#/VOLUME] IN BLOOD BY AUTOMATED COUNT 5.49 10*6/uL 4.10 - 5.70 09/05 Specimen Type: BLOOD No comment entered. Ordering Provider: MIGEL CUNNINGHAM Report Released Date/Time: Sep 05, 2023 11:05 AM Reporting Lab: [address] [address] Performing Lab: [address] [address] [facility] CBC HEMOGLOBIN [MASS/VOLU ME] IN BLOOD 16.9 g/dL 13.1 - 16.8 09/05 H Specimen Type: BLOOD No comment entered. Ordering Provider: MIGEL CUNNINGHAM Report Released Date/Time: Sep 05, 2023 11:05 AM Reporting Lab: [place] [phone] Performing Lab: [facility] [address] [facility] [address] [facility] CBC HEMATOCRIT [VOLUME FRACTION] OF BLOOD 48.8 38.2 - 48.4 09/05 H Specimen Type: BLOOD No comment entered. Ordering Provider: MIGEL CUNNINGHAM Report Released Date/Time: Sep 05, 2023 11:05 AM Reporting Lab: [address] [address] Performing Lab: [address] [address] [facility] CBC MCV [ENTITIC VOLUME] BY AUTOMATED COUNT 88.9 fL 80.0 - 100.0 09/05 Specimen Type: BLOOD No comment entered. Ordering Provider: MIGEL CUNNINGHAM Report Released Date/Time: Sep 05, 2023 11:05 AM Reporting Lab: [address] [address] Performing Lab: [address] [address] [facility] CBC MCH [ENTITIC MASS] BY AUTOMATED COUNT 30.8 pg 27.0 - 34.0 09/05 Specimen Type: BLOOD No comment entered. Ordering Provider: MIGEL CUNNINGHAM Report Released Date/Time: Sep 05, 2023 11:05 AM Reporting Lab: [address] [address] Performing Lab: [address] [address] [facility] CBC MCHC [MASS/VOLU ME] BY AUTOMATED COUNT 34.6 g/dL 33.0 - 36.0 09/05 Specimen Type: BLOOD No comment entered. Ordering Provider: MIGEL CUNNINGHAM Report Released Date/Time: Sep 05, 2023 11:05 AM Reporting Lab: [address] [address] Performing Lab: [address] [place] [address] [facility] CBC PLATELETS [#/VOLUME] IN BLOOD BY AUTOMATED COUNT 291 10*3/uL 150 - 400 09/05 Specimen Type: BLOOD No comment entered. Ordering Provider: MIGEL CUNNINGHAM Report Released Date/Time: Sep 05, 2023 11:05 AM Reporting Lab: [address] [address] Performing Lab: [place] [address] [facility] [address] [facility] CBC PLATELET MEAN VOLUME [ENTITIC VOLUME] IN BLOOD BY AUTOMATED COUNT 9.9 fL 7.5 - 11.2 09/05 Specimen Type: BLOOD No comment entered. Ordering Provider: MIGEL CUNNINGHAM Report Released Date/Time: Sep 05, 2023 11:05 AM Reporting Lab: [address] [phone] Performing Lab: [place] [address] [facility] [address] [facility] CBC ERYTHROCYT E DISTRIBUTI ON WIDTH [RATIO] BY AUTOMATED COUNT 12.1 11.8 - 15.1 09/05 Specimen Type: BLOOD No comment entered. Ordering Provider: MIGEL CUNNINGHAM Report Released Date/Time: Sep 05, 2023 11:05 AM Reporting Lab: [address] [address] Performing Lab: [address] [address] [facility] CBC LYMPHOCYTE S/100 LEUKOCYTES IN BLOOD BY AUTOMATED COUNT 26 09/05 Specimen Type: BLOOD No comment entered. Ordering Provider: MIGEL CUNNINGHAM Report Released Date/Time: Sep 05, 2023 11:05 AM Reporting Lab: [place] [address] [facility] [address] Performing Lab: [place] [address] [facility] [address] [facility] CBC MONOCYTES/ 100 LEUKOCYTES IN BLOOD BY AUTOMATED COUNT 7 09/05 Specimen Type: BLOOD No comment entered. Ordering Provider: MIGEL CUNNINGHAM Report Released Date/Time: Sep 05, 2023 11:05 AM Reporting Lab: [facility] [address] [facility] [address] Performing Lab: [facility] [address] [facility] [address] [facility] CBC NEUTROPHIL S/100 LEUKOCYTES IN BLOOD BY AUTOMATED COUNT 61 09/05 Specimen Type: BLOOD No comment entered. Ordering Provider: MIGEL CUNNINGHAM Report Released Date/Time: Sep 05, 2023 11:05 AM Reporting Lab: [facility] [address] [facility] [address] Performing Lab: [facility] [address] [place] [phone] [facility] CBC EOSINOPHIL S/100 LEUKOCYTES IN BLOOD BY AUTOMATED COUNT 2 09/05 Specimen Type: BLOOD No comment entered. Ordering Provider: MIGEL CUNNINGHAM Report Released Date/Time: Sep 05, 2023 11:05 AM Reporting Lab: [facility] [address] [place] [phone] Performing Lab: [facility] [address] [place] [phone] [facility] CBC BASOPHILS/ 100 LEUKOCYTES IN BLOOD BY AUTOMATED COUNT 2 09/05 Specimen Type: BLOOD No comment entered. Ordering Provider: MIGEL CUNNINGHAM Report Released Date/Time: Sep 05, 2023 11:05 AM Reporting Lab: [facility] [address] [place] [phone] Performing Lab: [facility] [address] [place] [phone] [facility] CBC LYMPHOCYTE S [#/VOLUME] IN BLOOD BY AUTOMATED COUNT 2.25 10*3/uL 0.77 - 4.50 09/05 Specimen Type: BLOOD No comment entered. Ordering Provider: MIGEL CUNNINGHAM Report Released Date/Time: Sep 05, 2023 11:05 AM Reporting Lab: [facility] [address] [place] [phone] Performing Lab: [facility] [address] [place] [phone] [facility] CBC MONOCYTES [#/VOLUME] IN BLOOD BY AUTOMATED COUNT 0.63 10*3/uL 0.19 - 0.80 09/05 Specimen Type: BLOOD No comment entered. Ordering Provider: MIGEL CUNNINGHAM Report Released Date/Time: Sep 05, 2023 11:05 AM Reporting Lab: [address] [phone] Performing Lab: [address] [phone] [facility] CBC NEUTROPHIL S [#/VOLUME] IN BLOOD BY AUTOMATED COUNT 5.26 10*3/uL 2.10 - 8.00 09/05 Specimen Type: BLOOD No comment entered. Ordering Provider: MIGEL CUNNINGHAM Report Released Date/Time: Sep 05, 2023 11:05 AM Reporting Lab: [address] [address] Performing Lab: [address] [address] [facility] CBC EOSINOPHIL S [#/VOLUME] IN BLOOD BY AUTOMATED COUNT 0.20 10*3/uL 0.00 - 0.60 09/05 Specimen Type: BLOOD No comment entered. Ordering Provider: MIGEL CUNNINGHAM Report Released Date/Time: Sep 05, 2023 11:05 AM Reporting Lab: [address] [phone] Performing Lab: [address] [address] [facility] BASOPHILS [#/VOLUME] IN BLOOD BY AUTOMATED COUNT 0.19 10*3/uL 0.00 - 0.20 09/05 Specimen Type: BLOOD No comment entered. Ordering Provider: MIGEL CUNNINGHAM Report Released Date/Time: Sep 05, 2023 11:05 AM Reporting Lab: [facility] [address] [facility] [address] Performing Lab: [facility] [address] [facility] [address] [facility] Encounters Combined list of: 1) Encounters from Department of [facility] Affairs facilities going back up to thelast 18 months. 2) Encounters from the Department of Defense facilities going back up to 280 months. Location Location Details Encounter Type Encounter Number Reason For Visit Attending Provider ADM Date DC Date Status Disposition [place] [address](Opt ometry Clinic BMT [facility]) OUTPATIENT [id number] doc DWAIN SNOWDEN 04/26 Released w/o Limitations [facility] [place] [address](O ptometr y Clinic BMT [facility]) [employer](Fam [facility]) OUTPATIENT [id number] GALI MILLS 10/25 Released w/o Limitations [employer](F [facility]) [employer](Ope rat Med Cln Tm2 AD Only) OUTPATIENT [id number] PHA/130 0 Walk-in GALI SPEARS 06/12 Released w/o Limitations [employer](O perat Med Cln Tm2 AD Only) [employer](Ope rat Med Cln Tm2 AD Only) OUTPATIENT [id number] INFERTI ESTELA PENNY 11/18 Released w/o Limitations [employer](O perat Med Cln Tm2 AD Only) [employer](Flt /Missile Medicine) OUTPATIENT [id number] 1030 DENTAL/ 30 NORA MADDOX 05/27 Released w/o Limitations [employer](F lt/Miss ile Medicin e) [facility] OUTPATIENT [id number] 03/04 Released w/o Limitations [facility] [employer](Med Std Mgt Element) OUTPATIENT [id number] BILLY CAMILO 05/31 Released w/o Limitations [facility](M ed Std Mgt Element ) [employer](Ope rat Med Cln Tm2 AD Only) OUTPATIENT [id number] pdhra/d ra2 closure ESTELA CONDE Evelyn 06/22 Released w/o Limitations [employer] [facility](O perat Med Cln Tm2 AD Only) [employer]([facility]) OUTPATIENT [id number] Notes Entered by: JOHNNY THOMPSON 05 Nov 2011 0907 ------- ------- ------- ------- -- #3 KONSTANTIN BUENO 11/05 Released w/o Limitations [employer] [facility](F lt/Miss ile Medicin e) [facility] Group(Ope rat Med Cln Tm2 AD Only) TELE CONSULT [id number] Notes Entered by: Nancy TALBERT 12 Jan 2012 0707 ------- ------- ------- ------- -- Triage- sore throat/ v/d/ cold sweats. OSITO LEWIS 01/11 Referred for Appointment [facility](O perat Med Cln Tm2 AD Only) [facility](Opt ometry Clinic) OUTPATIENT [id number] eye exam MORALES VALLE 01/25 Released w/o Limitations [facility](O ptometr y Clinic) [facility](Ope rat Med Cln Tm2 AD Only) TELE CONSULT [id number] Notes Entered by: KASIA GÓMEZ 15 Aug 2012 1431 ------- ------- ------- ------- -- Refill / out ALEJANDRA STEEL 08/15 Referred for Appointment [employer](O perat Med Cln Tm2 AD Only) [facility](Med Std Mgt Element) OUTPATIENT [id number] YOU TINAJERO 09/15 Released w/o Limitations [employer](M ed Std Mgt Element ) [facility](Ope rat Med Cln Tm2 AD Only) OUTPATIENT [id number] POST DEPLOY ANURADHA GUTIERREZ 09/28 Released w/o Limitations [facility](O perat Med Cln Tm2 AD Only) [employer](Ope rat Med Cln Tm2 AD Only) TELE CONSULT [id number] Notes Entered by: JERMAIN BENSON 03 Nov 2012 1348 ------- ------- ------- ------- -- NETWORK RESULTS URO. ANURADHA GUTIERREZ CLAUDIO 11/03 Medical Group(O perat Med Cln Tm2 AD Only) [facility] Group(War rior Operation al Medicine) OUTPATIENT [id number] Notes Entered by: Nila CESAR 24 Nov 2012 1029 ------- ------- ------- ------- -- In process KONSTANTIN Pickering 11/24 Released w/o Limitations [employer] [facility](W arrior Operati onal Medicin e) [facility](War rior Operation al Medicine) TELE CONSULT [id number] Notes Entered by: Evelyn LOPEZ 08 Jun 2013 0750 ------- ------- ------- ------- -- Ac. Martinez pt c/o cough/c ongesti on/cold sweats/ weeks x1week. ..[phone] CHANDANA TRIPLETT 06/08 Medical Group(W arrior Operati onal Medicin e) Medical Group([facility] ROK 3) OUTPATIENT [id number] flu like symptom s RUDDY BACA 06/28 Released w/o Limitations [facility](L [facility] ROK 3) Medical Group(War rior Operation al Medicine) OUTPATIENT [id number] back pain JACKIE YOUSSEF 08/21 Released w/o Limitations [employer](W arrior Operati onal Medicin e) [facility] Group(War rior Operation al Medicine) TELE CONSULT [id number] Notes Entered by: TANNER GOODWIN 04 Sep 2013 1510 ------- ------- ------- ------- -- [facility] 08/29 JACKIE YOUSSEF 09/04 Medical Group(W arrior Operati onal Medicin e) [facility] Medical [facility](War rior Operation al Medicine) TELE CONSULT [id number] Notes Entered by: Monique QUINTERO 06 Sep 2013 1514 ------- ------- ------- ------- -- Ac. Rah cummings Pt had MRI at [facility] on Tuesday to discuss CHANDANA TRIPLETT 09/06 Medical Group(W arrior Operati onal Medicin e) [facility] Medical [facility](War rior Operation al Medicine) OUTPATIENT [id number] f/u MRI in results JACKIE YOUSSEF 09/07 Released w/o Limitations [employer](W arrior Operati onal Medicin e) [facility] Group(War rior Operation al Medicine) TELE CONSULT [id number] Notes Entered by: MEÑO MEHTA 10 Sep 2013 1010 ------- ------- ------- ------- -- Tre cummings Patient has georgina haywood about his profile . [phone] JACKIE YOUSSEF 09/10 Medical Group(W arrior Operati onal Medicin e) [facility] Medical [facility](War rior Operation al Medicine) TELE CONSULT [id number] Notes Entered by: ARLET WILSON 11 Sep 2013 1050 ------- ------- ------- ------- -- Ac. Rah cummings Pt c/o of back pain pt has been seen for the issuse JACKIE YOUSSEF 09/11 Medical Group(W arrior Operati onal Medicin e) [facility] Medical [facility](War rior Operation al Medicine) TELE CONSULT [id number] Notes Entered by: MEÑO MEHTA 11 Sep 2013 1425 ------- ------- ------- ------- -- Ac Burkhol negra. Patient was told to black pickler disk for MRI results and drop off at MARYANN STAFFORD E 09/11 Medical Group(W arrior Operati onal Medicin e) [facility] Group(War rior Operation al Medicine) TELE CONSULT [id number] Notes Entered by: MEÑO MEHTA 20 Sep 2013 1202 ------- ------- ------- ------- -- Ac Burkhol negra. Patient needs refill on Ultra. [phone] ANDREAS SEGURA 09/20 Medical Group(W arrior Operati onal Medicin e) Medical Group([facility]) OUTPATIENT [id number] Notes Entered by: JERMAINE AMES ND 19 Oct 2013 0937 ------- ------- ------- ------- -- ИРИНА DALEY 10/19 Released w/o Limitations [facility]) Medical Group([facility] Operation al Medicine) TELE CONSULT [id number] Notes Entered by: ERICA YARBROUGH 24 Oct 2013 1053 ------- ------- ------- ------- -- Network results -Lab Report- 10/30 ABBEY ANN 10/24 Medical Group(W arrior Operati onal Medicin e) Medical Group([facility] ROK 4) OUTPATIENT [id number] cough/c ongesti on DWAIN HEBERT 10/30 Released w/o Limitations [facility] 4) Medical Group([facility] Operation al Medicine) TELE CONSULT [id number] Notes Entered by: JONATHAN RUIZ 16 Nov 2013 1247 ------- ------- ------- ------- -- NETWORK RESULTS - SURGERY - 10/30 JACKIE YOUSSEF 11/16 Medical Group(W arrior Operati onal Medicin e) [facility](War rior Operation al Medicine) TELE CONSULT [id number] Notes Entered by: LETICIA MENDOZA 22 Nov 2013 1504 ------- ------- ------- ------- -- Network Results - Surgery 11/30 MIGUEL ANGEL WALLACE 11/22 Medical Group(W arrior Operati onal Medicin e) Medical Group([facility] ROK 3) TELE CONSULT [id number] Notes Entered by: LETICIA MENDOZA 22 Nov 2013 1510 ------- ------- ------- ------- -- Network Results - ER 11/30 MIGUEL ANGEL WALLACE 11/22 Medical Group([facility] 3) [facility] Group(War rior Operation al Medicine) OUTPATIENT [id number] back pain f/u JACKIE YOUSSEF 12/21 Released w/o Limitations [facility](W arrior Operati onal Medicin e) [facility](War rior Operation al Medicine) TELE CONSULT [id number] Notes Entered by: ABRAM EUCEDA 25 Dec 2013 1020 ------- ------- ------- ------- -- Network Results -Surger y 11/30 JACKIE YOUSSEF 12/25 Medical Group(W arrior Operati onal Medicin e) [facility] Group(War rior Operation al Medicine) TELE CONSULT [id number] Notes Entered by: KYRIE KENNEY 03 Jan 2014 1029 ------- ------- ------- ------- -- Tre cummings Pt is request ing status on 365 profile MARYANN STAFFORD 01/03 Medical Group(W arrior Operati onal Medicin e) [facility] Group(War rior Operation al Medicine) TELE CONSULT [id number] Notes Entered by: CHERISE SUMNER 17 Jan 2014 0844 ------- ------- ------- ------- -- Ac. Rah omer pt is needing RX [employer] dievishal camejo dIlir [phone] UZIELLAURAManuel MCRAE 01/17 Medical Group(W arrior Operati onal Medicin e) [facility] Medical Group([facility] Operation al Medicine) TELE CONSULT [id number] Notes Entered by: Evelyn LOPEZ 21 Jan 2014 1356 ------- ------- ------- ------- -- Ac. Monreal negra pt has questio n about the dosage on the med for jorge luis JACKIE YOUSSEF 01/21 Medical Group(W arrior Operati onal Medicin e) [facility] Group([facility] Operation al Medicine) TELE CONSULT [id number] Notes Entered by: KONSTANTIN APPIAH 06 Feb 2014 1041 ------- ------- ------- ------- -- Rah omer med refill JACKIE YOUSSEF 02/06 Medical Group(W arrior Operati onal Medicin e) [facility] Medical [facility] Operation al Medicine) OUTPATIENT [id number] sleep study f/u JACKIE YOUSSEF 02/12 Released w/o Limitations [facility](W arrior Operati onal Medicin e) [facility] Group([facility] Operation al Medicine) TELE CONSULT [id number] Notes Entered by: KONSTANTIN APPIAH 13 Feb 2014 0955 ------- ------- ------- ------- -- KONSTANTIN Gilliland 02/13 [facility] Group(W arrior Operati onal Medicin e) [facility] Group([facility] Operation al Medicine) TELE CONSULT [id number] Notes Entered by: KYRIE KENNEY 05 Mar 2014 1233 ------- ------- ------- ------- -- Ac Burkhol negra Pt is request ing a refill on [place] 10mg. [phone] KONSTANTIN APPIAH 03/05 Medical Group(W arrior Operati onal Medicin e) [address] [place] [address]([facility]) TELE CONSULT [id number] Notes Entered by: KONSTANTIN APPIAH 12 Mar 2014 1131 ------- ------- ------- ------- -- Burkhol negra med Refill JACKIE YOUSSEF 03/12 [facility] Group(W arrior Operati onal Medicin e) [address] [place] [address]([facility]) TELE CONSULT [id number] Notes Entered by: MEÑO MEHTA 16 Apr 2014 1225 ------- ------- ------- ------- -- Ac Burkhol negra. Patient needs refills on Benzacl in and Tretino in. Have not been KONSTANTIN APPIAH 04/16 [facility] Group(W arrior Operati onal Medicin e) [facility]) TELE CONSULT [id number] Notes Entered by: CHANDANA WHITE 27 May 2014 1541 ------- ------- ------- ------- -- Request yassine rivas for PT and xray as recomme nded by CHANDANA Bateman 05/27 [facility] Group(W arrior Operati onal Medicin e) [facility]) TELE CONSULT [id number] Notes Entered by: Monique QUINTERO 03 Jun 2014 1253 ------- ------- ------- ------- -- Ac. Burkhol negra. 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 MALIK Antony 06/06 [facility] Group(W arrior Operati onal Medicin e) [facility] Operation al Medicine) TELE CONSULT [id number] Notes Entered by: ABRAM EUCEDA 19 Jun 2014 0750 ------- ------- ------- ------- -- Network Results -PT 05/30 REBEKAHCARMELA YEN 06/19 [facility] Group(W arrior Operati onal Medicin e) Medical Group([facility] Operation al Medicine) TELE CONSULT [id number] Notes Entered by: ERICA YARBROUGH 24 Jun 2014 1047 ------- ------- ------- ------- -- Network Results -Anesth esiolog y-02/27 and 03/30 CARMELA WELCH 06/24 Medical Group(W arrior Operati onal Medicin e) Medical Group([facility] 4) TELE CONSULT [id number] Notes Entered by: LETICIA MENDZOA 26 Jun 2014 0858 ------- ------- ------- ------- -- Network Results - Pain Med 06/30 CARMELA WELCH 06/26 [facility] Group([facility] 4) [facility] Operation al Medicine) TELE CONSULT [id number] Notes Entered by: Monique QUINTERO 19 Jul 2014 1207 ------- ------- ------- ------- -- Ac. Rah omer. Pt states he has request ed MRI for shoulde r and CT-scan CHANDANA TRIPLETT 07/19 [facility] Group(W arrior Operati onal Medicin e) [address] [place] [address]([place] [address]) TELE CONSULT [id number] Notes Entered by: STEPHANIE CR 08 Aug 2014 1027 ------- ------- ------- ------- -- Needs sleep apnea supplie s KAUSHAL JAMA 08/08 Medical Group([facility] 2) [facility]) OUTPATIENT [id number] shoulde r pain/nu mbness CARMELA WELCH 08/12 Released w/o Limitations [facility] Group(W arrior Operati onal Medicin e) [facility] Medical [facility]) OUTPATIENT [id number] Notes Entered by: Julio MORA 26 Aug 2014 1322 ------- ------- ------- ------- -- throat culture DWAIN RAMIRES 08/26 Released w/o Limitations [facility](W arrior Operati onal Medicin e) [facility] Medical Group([place] [address]) TELE CONSULT [id number] Notes Entered by: KAUSHAL JAMA 26 Aug 2014 1729 ------- ------- ------- ------- -- Test results DWAIN RAMIRES 08/26 Referred for Appointment [facility] 2) [facility] Medical Group([facility]) TELE CONSULT [id number] Notes Entered by: JONATHAN RUIZ 05 Sep 2014 0954 ------- ------- ------- ------- -- NETWORK RESULTS - PHYSICA L THERAPY - 08/30 CARMELA WELCH 09/05 [facility] Group(W arrior Operati onal Medicin e) Medical Group([facility] 2) OUTPATIENT [id number] congest ion/sor e throat # KAUSHAL JAMA 09/05 Released w/o Limitations [facility] 2) Medical Group(Ref erral Managemen t Clinic) TELE CONSULT [id number] Notes Entered by: Shirley CURTIS 03 Oct 2014 1059 ------- ------- ------- ------- -- Adminis trative Purpose NORMA Eagle 10/03 Medical Group(R eferral Manage ent Clinic) Medical Group([facility] 2) TELE CONSULT [id number] Notes Entered by: Shirley CURTIS 16 Oct 2014 0852 ------- ------- ------- ------- -- Adminis trative Purpose NORMA Eagle 10/16 Medical Group([place] [address]) Medical Group([facility]) TELE CONSULT [id number] Notes Entered by: TYSON HIGGINS 21 Oct 2014 1512 ------- ------- ------- ------- -- GABRIELLE GARCIA 10/21 Medical Group(W arrior Operati onal Medicin e) Medical Group([facility] Disease Managemen t) TELE CONSULT [id number] Notes Entered by: SARAH GOVEA 25 Oct 2014 1245 ------- ------- ------- ------- -- NETWORK RESULT - RADIOLO GY - 10/31 LB HARDING 10/25 Medical Group([facility] Disease Managem ent) [facility]([place] [address]) OUTPATIENT [id number] blood in stool [phone] LB HARDING 10/31 Released w/o Limitations [facility] ROK 2) [facility] 2) TELE CONSULT [id number] Notes Entered by: LB HARDING 04 Nov 2014 1205 ------- ------- ------- ------- -- MRI results DALIA KERNS 11/04[facility] ROK 2) [facility] 2) OUTPATIENT [id number] shoulde r f/u...6 [phone] LB HARDING 11/07 Released w/o Limitations [facility] ROK 2) [facility] 2) TELE CONSULT [id number] Notes Entered by: BAYLEE COVINGTON 21 Nov 2014 1456 ------- ------- ------- ------- -- Tre Harding Pt would like referra evelyn koch for physica l therapy and pain managem en GABRIELLE ROSALES 11/21 [facility] 2) TELE CONSULT [id number] Notes Entered by: MELINA HAM AM 26 Nov 2014 1440 ------- ------- ------- ------- -- Pt extensi on DALIA KERNS 11/26 Medical [facility] RO 2) [facility] 2) TELE CONSULT [id number] Notes Entered by: Monique QUINTERO 27 Nov 2014 1257 ------- ------- ------- ------- -- Ac. Harding. Pt would like refill on gabrielRubén alexander.618. [phone] ELIZABETH ROSALESMARY MIRELES 11/27 Medical Group([facility] ROK 2) Medical [facility] RO 2) TELE CONSULT [id number] Notes Entered by: JONATHAN RUIZ 28 Nov 2014 1007 ------- ------- ------- ------- -- NETWORK RESULTS - SURGERY - 12/01 LB HARDING 11/28 Medical Group([facility] ROK 2) [facility] 2) OUTPATIENT [id number] neuro f/u LB HARDING 12/03 Released w/o Limitations [facility] ROK 2) [address] [place] [address] Group([facility]) TELE CONSULT [id number] Notes Entered by: JONATHAN RUIZ 06 Dec 2014 0918 ------- ------- ------- ------- -- NETWORK RESULTS - PHYSICA L THERAPY - 12/01 MACY BANGBARB Dotson 12/06[facility] Group(W arrior Operati onal Medicin e) [facility] ROK 2) OUTPATIENT [id number] NDB..61 [phone] MACYAMEENila Dotson 12/12 Released w/o Limitations [facility] Group([facility] ROK 2) [address] [place] [address]([facility] ROK 2) TELE CONSULT [id number] Notes Entered by: STEPHANIE CR 12 Dec 2014 1312 ------- ------- ------- ------- -- Needs labs drawn CHARISSA CR 12/12[facility] ROK 2) [address] [place] [address]([facility] ROK 2) TELE CONSULT [id number] Notes Entered by: JONATHAN RUIZ 16 Dec 2014 1339 ------- ------- ------- ------- -- NETWORK RESULTS - SLEEP - MULTIPL E DATES RUDDY BACA 12/16 Medical Group(L ittle [facility] ROK 2) [facility] TELE CONSULT [id number] Notes Entered by: Monique LAYTON 26 Dec 2014 0758 ------- ------- ------- ------- -- NETWORK RESULTS - NEURO 12/29 RUDDY BACA 12/26 Medical Group([place] 2) [facility] Group([facility] R[facility] 2) TELE CONSULT [id number] Notes Entered by: SUE WHITING 26 Dec 2014 0825 ------- ------- ------- ------- -- NETWORK RESULTS -GASTRO -12/01 RUDDY BACA 12/26 Medical Group(L ittle [facility] ROK 2) Medical Group([facility] R[facility] 2) OUTPATIENT [id number] poss [facility] # RUDDY BACA 12/31 Released w/o Limitations [facility](L ittle [place] [facility] ROK 2) Medical Group([facility] R[facility] 2) OUTPATIENT [id number] lump on leg RUDDY BACA 01/02 [facility]ased w/o Limitations [facility] R[facility] 2) OUTPATIENT [id number] arm/leg issue.. .618.98 [phone] RUDDY BACA 01/10 Released w/o Limitations [facility] Medical Group([facility]) OUTPATIENT [id number] Notes Entered by: TYSON HIGGINS 14 Jan 2015 1410 ------- ------- ------- ------- -- sarah BLACKMARIANGEL REALOD 01/14 Released w/o Limitations [facility](P DIANA Cell) Medical [facility] 2) TELE CONSULT [id number] Notes Entered by: JONATHAN RUIZ 17 Jan 2015 1501 ------- ------- ------- ------- -- NETWORK RESULTS - PT - 12/29 RUDDY BACA 01/17 Medical Group([facility] 2) [facility] Medical Group([facility] 2) TELE CONSULT [id number] Notes Entered by: BAYLEE COVINGTON 27 Jan 2015 1353 ------- ------- ------- ------- -- Tre Baca Pt would like Dr Austin's referra evelyn koch for DME supplie s NORMA BROOKS 01/27 Medical Group([facility] 2) [facility] Medical [facility] 2) OUTPATIENT [id number] Notes Entered by: CISCO EASLEY 28 Jan 2015 0758 ------- ------- ------- ------- -- Sore throat WIN HESTER 01/28 Released w/o Limitations Medical [facility] 2) [address] [place] [address](Opt ometry Services) OUTPATIENT [id number] eye exam MAYITO ALBARRAN 02/10 Released w/o Limitations [address] [place] [address] Group(O ptometr y Service s) [address] [place] [address]([facility] 2) TELE CONSULT [id number] Notes Entered by: Evelyn LOPEZ 10 Feb 2015 1509 ------- ------- ------- ------- -- Ac. Baca pt need marty koch to [facility]..[phone] NORMA BROOKS 02/10 [facility]Lit [facility] 2) TELE CONSULT [id number] Notes Entered by: Evelyn LOPEZ 20 Feb 2015 1211 ------- ------- ------- ------- -- Ac. Baca pt need marty koch to dr freddie rodgers for pain NORMA BROOKS 02/20 Medical Group(L ittle [facility] R[place] 2) Medical Group(Lit [facility] [place] 2) TELE CONSULT [id number] Notes Entered by: JONATHAN RUIZ 05 Mar 2015 1348 ------- ------- ------- ------- -- NETWORK RESULTS - DERMATO LOGY - 02/28 RUDDY BACA 03/05 [facility] 2) OUTPATIENT [id number] chronic back pain WILFREDO ZARAGOZA 03/14 Released w/o Limitations Medical Group(L itt [place] [facility] R[facility] 2) Medical Group([facility] R[facility] 2) TELE CONSULT [id number] Notes Entered by: Evelyn LOPEZ 18 Mar 2015 1048 ------- ------- ------- ------- -- Ac. Milligan pt need marty koch to dr freddie rodgers for pain managem VERONICA Bridges 03/18 [facility] Medical [facility] 2) TELE CONSULT [id number] Notes Entered by: JONATHAN RUIZ 24 Mar 2015 1019 ------- ------- ------- ------- -- NETWORK RESULTS - MRI - 03/31 NORMA BROOKS 03/24 [facility]) TELE CONSULT [id number] Notes Entered by: SHARRI KRISHNAMURTHY 07 Apr 2015 1110 ------- ------- ------- ------- -- RUDDY DOVE 04/07 Medical Group([facility]) Medical Group([facility] 2) OUTPATIENT [id number] f/u mri # WILFREDO ZARAGOZA 04/08 Released w/o Limitations [facility](L [facility]tle [place] [facility] [place] 2) [facility] Medical Group([facility] 2) TELE CONSULT [id number] Notes Entered by: JONATHAN RUIZ 08 Apr 2015 1409 ------- ------- ------- ------- -- NETWORK RESULTS - ORTHO - 03/31 WILFREDO ZARAGOZA 04/08 [facility] 2) TELE CONSULT [id number] Notes Entered by: RENALDO DEL ANGEL 09 Apr 2015 1434 ------- ------- ------- ------- -- NETWORK RESULTS -DERMA- 12/29 TU FAM 04/09 [facility] 2) TELE CONSULT [id number] Notes Entered by: Monique SPARKS 10 Apr 2015 0657 ------- ------- ------- ------- -- Wrong chart WILFREDO ZARAGOZA 04/10 [facility] 2) TELE CONSULT [id number] Notes Entered by: SUSI MILLIGAN RA 21 Apr 2015 1608 ------- ------- ------- ------- -- Lab results NORMA BROOKS 04/21 Medical Group([facility] 2) Medical Group([facility] 2) TELE CONSULT [id number] Notes Entered by: JONATHAN RUIZ 02 May 2015 1340 ------- ------- ------- ------- -- NETWORK RESULTS - MRI - 04/30 NORMA BROOKS 05/02 Medical Group([facility] 2) Medical Group(In and Out Processin tiffany Reyes) TELE CONSULT [id number] Notes Entered by: NOE ALMEIDA 02 May 2015 1510 ------- ------- ------- ------- -- In and out process ing AVIVA ALMEIDA 05/02 Medical Group(I n and Out Process yassine Reyes) Medical Group([facility] 2) TELE CONSULT [id number] Notes Entered by: Monique LAYTON 27 May 2015 1009 ------- ------- ------- ------- -- NETWORK RESULTS - ORTHO 05/31 WILFREDO ZARAGOZA 05/27 Medical Group([facility] 2) Medical Group([facility]) TELE CONSULT [id number] Notes Entered by: Evelyn LOPEZ 24 Jun 2015 0955 ------- ------- ------- ------- -- Ac. Milligan pt need referra l to dr billingsley for pain managem ent NORMA BROOKS 06/24 Medical Group([facility]) Medical [facility] 2) TELE CONSULT [id number] Notes Entered by: MICHELLE PEREZ 03 Jul 2015 0939 ------- ------- ------- ------- -- Ac. Milligan pt would like to know if he can get a elli beard e medicat ion ANDREAS SEGURA 07/03 Medical Group([facility] R[facility] 2) Medical Group([facility] 2) TELE CONSULT [id number] Notes Entered by: TASNEEM TOSCANO 03 Jul 2015 1253 ------- ------- ------- ------- -- NETWORK RESULT - [facility] - 07/01 WILFREDO ZARAGOZA 07/03 Medical Group([facility] R[facility] 2) Medical Group([facility] 2) OUTPATIENT [id number] daily headach [facility] WILFREDO ZARAGOZA 07/03 Released w/o Limitations Medical Group([facility] R[facility] 2) [facility] Medical Group([facility] 2) TELE CONSULT [id number] Notes Entered by: SUSI MILLIGAN RA 21 Jul 2015 1842 ------- ------- ------- ------- -- Lab results ANDREAS SEGURA 07/21 Medical Group([facility] R[facility] 2) Medical [facility] 2) TELE CONSULT [id number] Notes Entered by: TASNEEM TOSCANO 24 Jul 2015 1557 ------- ------- ------- ------- -- NETWORK RESULT - ORTHO - 07/01 NORMA BROOKS 07/24 Medical Group([facility] R[facility] 2) Medical [facility] 2) TELE CONSULT [id number] Notes Entered by: Evelyn LOPEZ 25 Jul 2015 0810 ------- ------- ------- ------- -- [place]ac. [place] [facility]... [phone] NORMA BROOKS 07/25 [facility] Medical Group([facility] 2) [address] [place] [address]([facility] 2) OUTPATIENT [id number] 1 month f/u DIANA WILFREDO ZARAGOZA 07/31 Released w/o Limitations [facility] 2) [address] [place] [address]([facility] 2) OUTPATIENT [id number] poss ear infecti on WILFREDO ZARAGOZA 11/19 Released w/o Limitations [address] [place] [address]([facility] 2) [address] [place] [address]([facility]) TELE CONSULT [id number] Notes Entered by: BAYLEE COVINGTON 03 May 2016 0931 ------- ------- ------- ------- -- Tre Carter Pt would like renew referra l for pain managem ent CHANDANA Bateman 05/03[facility]) [address] [place] [address]([facility]) OUTPATIENT [id number] headach e # ABE CARTER 07/07 Released w/o Limitations [address] [place] [address]([facility]) [facility] Outpatient Encounter [id number] JIMI ANAND 08/05 [facility] OFFICE O/P EST MOD 30-39 MIN [id number] Diagnos is: ICD-10- CM G47.33 Obstruc tive sleep apnea (adult) (pediat delmy)
MET ROLAND RODRIGUEZ 08/08 [facility] Outpatient Encounter [id number] 08/24 [facility] Outpatient Encounter [id number] 09/03 [facility] Outpatient Encounter [id number] [facility] JEMIMA SHAFFER 09/05 [facility] EMERGENCY DEPT VISIT HI [facility] [id number] Diagnos is: ICD-10- CM L03.90 Celluli tis, unspeci fied
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
MAYDEN,CHR ISTINE M 01/09 [facility] Outpatient Encounter [id number] 01/09 [facility] Outpatient Encounter [id number] 01/09 [facility] Outpatient Encounter [id number] MET ROLAND RODRIGUEZ 05/16 [facility] Outpatient Encounter [id number] 08/07 [facility] Procedures Combined list of: 1) Procedures from Department of Veterans Affairs facilities going back up to thelast 18 months, not all VA non-surgical procedures are included; 2) All procedures from the Department of Defense facilities. Procedure Procedure Type Code Date Perfomer Comments Sour e FITTING OF SPECTACLES, EXCEPT FOR APHAKIA; MONOFOCAL 2 [facility] REPAIR AND REFITTING SPECTACLES; EXCEPT FOR APHAKIA 8 [facility] FITTING OF SPECTACLES, EXCEPT FOR APHAKIA; MONOFOCAL 5 [facility] Spectacles Services Fitting Monofocal Except For Aphakia Spectacles Services Fitting Monofocal Except For Aphakia 26566 5 MAYITO ALBARRAN [facility] Determination Of Refractive State Determination Of Refractive State 88239 5 MAYITO ALBARRAN [facility] Ophthalmological New Patient Start Comprehensive Care Ophthalmological New Patient Start Comprehensive Care 35166 5 MAYITO ALBARRAN [facility] Spectacles Services Fitting Monofocal Except For Aphakia Spectacles Services Fitting Monofocal Except For Aphakia 78633 2 [place] [facility] Determination Of Refractive State Determination Of Refractive State 40841 2 [place] Ophthalmological New Patient Start Comprehensive Care Ophthalmological New Patient Start Comprehensive Care 36050 2 [place] Repair And Refitting Gla es (Not For Aphakia) Repair And Refitting Glasses (Not For Aphakia) 81847 8 DWAIN SNOWDEN [facility] Spectacles Services Fitting Monofocal Except For Aphakia Spectacles Services Fitting Monofocal Except For Aphakia 70579 8 DWAIN SNOW[place] Determination Of Refractive State Determination Of Refractive State 03216 8 D[place]IN SN[place] Social History Combined list of available smoking, tobacco, and other social history from Department of Defense and Veterans Affairs facilities. Social History Type Response Date Comment Sour e Tobacco smoking status NJIS VA-TOBACCO NEVER USED 08/08/2023 [facility] History of tobacco use VA-TOBACCO NEVER USED 08/09/[facility] [place] of tobacco use [place]-TOBACCO NEVER USED 11/24/2020 [facility] History of tobacco use TN-TOBACCO QUIT 5 TO < 15 YRS 04/29/2020 [facility] History of tobacco use NON-TOBACCO USER 07/12/201602/2014 ARNOLDO GILES This section is an empty social history section. [employer]
--- OUTSIDE RECORDS SUMMARY | 2024-11-08 13:36 | XMS_ITS | Data Portability ---
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 Plan of Treatment Reminders Order Date Submit Date Provider Last Modified By Organization Details Last Modified Time Details Appointments None record ed. Lab None record ed. Referral None record ed. Procedures None record ed. Surgeries None record ed. Imaging None record ed. Medication Orders None record ed. Patient TargetsNo targets recorded. Patient Instructions Encounter Date Encounter Id Patient Instructions Last Modified By Organization Details Last Modified Time 07/26/2019 [id number] elevated blood pressure: care instructions Not available 07/27/2019 14:56:41 Patient counsele d to F/U immediately if temp. greater than 100.4, if is unable to urinate, increased rectal pain or any other concerns. Not available 07/27/2019 14:55:49 He will follow u p with me in 2 - 3 weeks. I discussed with him again that he will be a total of 5 - 6 treatments. Not available 07/27/2019 14:56:10 08/09/2019 [id number] Patient counsele d to F/U immediately if temp. greater than 100.4, if is unable to urinate, increased rectal pain or any other concerns. Not available 08/27/2019 11:06:12 He will follow u p in 3 - 4 weeks and I will retreat his RP internal hemorrhoid. We will then wait 6 weeks from today and try to retreat both his LL and RA. We may or may not do a 6th treatment 6 - 8 weeks after the 5th. Not available 08/27/2019 11:07:06 09/06/2019 [id number] dash diet: care instructions Not available 09/23/2019 15:05:51 elevated blood pressure: care instructions Not available 09/23/2019 15:05:51 low sodium diet (2,000 milligram): care instructions Not available 09/23/2019 15:05:51 starting a weigh t loss plan: care instructions Not available 09/23/2019 15:05:51 Patient counsele d to F/U immediately if temp. greater than 100.4, if is unable to urinate, increased rectal pain or any other concerns. Not available 09/23/2019 15:04:27 He will follow u p in 2 - 3 weeks and I will retreat both his LL and RA. We will probably then wait 6 - 8 weeks and do a 6th and final treatment. Not available 09/23/2019 15:04:59 09/20/2019 [id number] Patient counsele d to F/U immediately if temp. greater than 100.4, if is unable to urinate, increased rectal pain or any other concerns. Not available 10/15/2019 01:14:03 He will follow u p in 6 - 8 weeks and I will try to retreat all 3 internal hemorrhoids. That will be his last treatment. Not available 10/15/2019 01:14:27 11/23/2019 [id number] Patient counsele d to F/U immediately if temp. greater than 100.4, if is unable to urinate, increased rectal pain or any other concerns. Not available 12/10/2019 21:03:27 He will follow u p with me in 1 year, sooner if needed. Not available 12/10/2019 21:03:40 Reason for Referral None Reported. Problems Name Problem SNOMED Code Status Onset Date Resolution Date Notes Provider Name and Address Organization Details Recorded Time Shivani evelyn abebe reece [id number] Active 2019 Kathya Smith MD [facility] [address], [place], [address] [place] [address] [facility] 0 21:02:50 Perianal dermatit is 060879947 Active 2018 Kathya Smith MD [address] [place] [address],[address] [place] [address], [address] [place] [address] 5, [facility] 9 12:05:52 Pile easily reducibl e 756898473 Active 2018 Tx #1: 07/16/19 1.2 x 10 RP Tx #2: 07/23/19 1.2 x 10 LL Tx #3: 08/09/19 1.1 x 6 RA Tx #4: 09/06/19 1.2 x 9 RP Tx #5: 09/20/19 1.2 x 8 LL and 1.2 x 2 RA Tx #6: 11/23/19 1.2 x 7 RP and 1.2 x 5 LL Tx #7: 12/17/20 Kathya Smith MD [address] [place] [address],[address] [place] [address], [address] [place] [address] 5, [facility] 1 00:32:22 External hemorrho ids 18165974 Active 2018 Kathya Smith MD [address] [place] [address],[address], [address] [place] [address] 5, [facility] 9 01:42:13 Loose stool 908184311 Active 2018 Kathya Smith MD [address] [place] [address],[address] [place] [address] 5, [facility] 9 01:42:18 Elevated blood-pr essure reading without diagnosi s of hyperten reece [id number] Completed 201812/10/2019 Removal Reason: diagnosed with HTN Kathya Smith MD [address] [place] [address],[address] [place] [address] 5, [facility] 0 20:59:50 Problem Notes None recorded. Procedures Surgical History Date Name Laterality Status Provider Name and Address Organization Details Recorded Time 11/23/19 20 [place] [address] [place] [address],[address], [place], [address] [place], [place] [address] 12/10/2019 21:01:18 09/20/20 19 IR completed Kathya Smith MD [address] [place] [address],[address], [place], [address] [place] [address] [facility] 09/20/2019 16:16:13 09/06/20 19 IR completed Kathya Smith MD [address] [place] [address],[address], [place], [address] [place], [place] [address]oid [facility] 09/23/2019 15:00:38 08/09/20 19 IR completed Kathya Smith MD [address] [place] [address],[address], [place], [address] [place], [place] [address] 08/27/2019 11:04:07 07/26/20 19 IR completed Kathya Smith MD [address] [place] [address],[address], [place], [address] 07/27/2019 14:49:35 07/16/20 19 IR completed Kathya Smith MD [address] [place] [address],[address], [place], [address] [place], [place] [address] 07/17/2019 01:37:29 06/17/20 18 Cholecystectomy completed Kathya Smith MD [address] [place] [address],[address], [place], [address], [facility] 07/17/2019 01:34:50 10/17/19 13 sigmoidoscopy completed Kathya Smith MD [address] [place] [address],[address], [place], [address], [facility] 07/17/2019 01:34:58 Imaging Results None recorded. Procedure Notes None recorded. Medical Equipment None Reported. Allergies No known drug allergies Medications Name Sig Start Date Stop Date Status Note LastModified by Organization Details LastModified Time loperamide 2 mg capsule TK 2 CS PO BID PRF LOOSE STOOL active Not Available Not Available No t Available benzoyl peroxide 10 % topical cleanser active Not Available Not Available Not Available sulfamethox azole 800 mg-trimetho prim 160 mg tablet TAKE 1 TABLET BY MOUTH EVERY 12 HOURS active Not Available Not Available No t Available sildenafil 100 mg tablet active Not Available Not Available Not Available BD Luer-Lenin Syringe 3 mL 23 gauge x 1 1/2 USE DIRECTED active Not Available Not Available No t Available clotrimazol e-betametha sone 1 %-0.05 % topical cream Apply 2 g twice a day by topical route as directed for 14 days. active Not Available Not Available No t Available lisinopril 10 mg tablet TK 1 T PO QD active Not Available Not Available No t Available lisinopril 20 mg-hydrochl orothiazide 25 mg tablet TK 1/2 T PO D active Not Available Not Available No t Available lisinopril 10 mg-hydrochl orothiazide 12.5 mg tablet TAKE 1 TABLET BY MOUTH DAILY active Not Available Not Available No t Available testosteron e cypionate 200 mg/mL intramuscul ar oil INJECT 1 ML IN THE MUSCLE EVERY WEEK active Not Available Not Available No t Available BD Luer-Lenin Syringe 3 mL 21 gauge x 1 1/2 USE ONE PRN active Not Available Not Available No t Available minocycline 50 mg tablet 11/23 completed Not Available Not Available Not Available ciprofloxac in 0.3 %-dexametha sone 0.1 % ear drops,suspe nsion PLACE 4 DROPS INTO RIGHT EAR EVERY 12 HOURS FOR 7 DAYS active Not Available Not Available No t Available hydrochloro thiazide 12.5 mg tablet active Not Available Not Available Not Available adapalene 0.3 % topical gel active Not Available Not Available Not Available Vitals Date Recorded Body height Provider Name an d Address Organization Details Last Updated DateTime 07/26/2019 170.18 cm Yissel Mills [facility] 07/26/2019 11:47:33 Date Recorded Systolic blood pressure Diastolic blood pressure Provider Name and Address Organization Details Last Updated DateTime 07/26/2019 148 mm[Hg] 95 mm[Hg] Mely Chan [facility] 07/26/2019 11:54:45 Date Recorded Body height Provider Name an d Address Organization Details Last Updated DateTime 08/09/2019 170.18 cm [facility] 08/09/2019 15:41:14 Date Recorded Body height Systolic blood pressure Diastolic blood pressure Provider Name and Address Organization Details Last Updated DateTime 09/06/2019 170.18 cm 150 mm[Hg] 104 mm[Hg] [facility] 09/06/2019 15:59:56 Date Recorded Body height Provider Name an d Address Organization Details Last Updated DateTime 09/20/2019 170.18 cm [facility] 09/20/2019 15:55:30 Date Recorded Body height Provider Name an d Address Organization Details Last Updated DateTime 11/23/2019 170.18 cm [facility] 11/23/2019 15:03:17 Social History Question Answer Notes LastModified by Organizat ion Details LastModified Time Tobacco Smoking Status Never Smoker [facility] 07/16/2019 10:38:36 Do You Have An Advance Directive? No [email or web address] Information not available 07/16/2019 Do You Or Have You Ever Used E-cigarettes Or Vape? 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 11/23/2019 [email or web address] Information not available 11/23/2019 Do You Or Have You Ever Used Smokeless Tobacco? Never Used Smokeless Tobacco [email or web address] Information not available 07/16/2019 How Much Tobacco Do You Smoke? No [email or web address] Information not available 07/16/2019 Sex: Male Functional Status None recorded. Mental Status None recorded. Family History Relationship Description Onset Age of this Age Resolved Age Notes LastModified by Organization Details LastModified Time Father No current problems or disability [email or web address] Not available 10:38:28 Mother No current problems or disability [email or web address] Not available 10:38:28 Medical History Condition Response Coronary Artery Disease N Other N Atrial Fibrillation N Kidney Stones N Hyperthyroidism N Hernia N COPD N Glaucoma N Hypothyroidism N Depression N Accidental Bowel Leakage N Headaches/Migraines N Deep Vein Thrombosis N Cardiac Dysrhythmia N Anxiety Disorder N MRSA/VRE Exposure N Genital Herpes N Diverticulosis N Cancer N Stroke N Head Trauma N Genital Warts N Crohn's Disease N Liver Disease/Hepatitis N HIV/AIDS N High Cholesterol N Irritable Bowel Syndrome N Autoimmune Disease N Kidney Disease N Anemia N Arthritis/Gout N Celiac Disease N Anal/Rectal Trauma/Injury N Diabetes N Cataracts N Bleeding Disorder N Seizures/Epilepsy N Congestive Heart Failure (CHF) N Diverticulitis N Asthma N Heart Attack N Reflux/GERD N Ulcerative Colitis N Sleep Apnea N Aneurysm N Mitral Valve Prolapse N Heart Disease N Pulmonary Embolism N Hypertension N Colon/Rectal Polyps N Past Encounters Encounter ID Performer Location Encounter Start Date Encounter Closed Date Diagnosis/Indication Diagnosis SNOMED-CT Code Diagnosis ICD10 Code Diagnosis Note [id number] Kathya Smith MD Main Office [address] [address] 07/16/2019 10:24:45 07/16/2019 12:09:25 Perianal dermatitis 887242499 L30.9 I discussed with him how to use the Lotrisone Cream. I want him to use it consistent ly BID for 14 days and then stop using it. I will need to talk to him about skin protectant s at his next visit. Pile easily reducible 27 3486704 K64.1 Stage 2 - 3 internal hemorrhoid s: I do think he would benefit from infrared coagulatio n. Full informed consent for treatment was given including risks/bene fits and alternativ es. He wanted to proceed with treatment. His first treatment was done today on the right posterior. External hemorrhoids 239 [address]96 K64.4 These will improve with IRC. He understand s the only way to directly treat external hemorrhoid s would be with surgery and he does not wish to pursue this and his hemorrhoid s are not bad enough to require surgery. Loose stool 722536609 R1 9.5 He of course needs to be eating a high fiber diet. I advised he should start taking psyllium at a very low dose (start with 1 - 0.5 gm capsule daily) and slowly increase. This would hopefully help bulk his BM's somewhat. If this does not work, he could try cholestyra mine or even very low dose imodium. I advised he is shooting for 1 - 2 times daily BM's that are soft (Burlington Scale type 4). [id number] Kathya Smith MD Main Office [address] [place] [address] 07/26/2019 11:45:29 07/26/2019 12:17:59 Pile easily reducible 056344061 K64.1 Stage 2 - 3 internal hemorrhoid s: He is doing well with infrared coagulatio n. His 2nd treatment was done today on the . External hemorrhoids 239 30848 K64.4 These are improving with IRC. He understand s the only way to directly treat external hemorrhoid s would be with surgery and he does not wish to pursue this and his hemorrhoid s are not bad enough to require surgery. Perianal dermatitis 2754 23065 L30.9 This is much better with the Lotrisone Cream. He should finish out the full 2 weeks. I will discuss skin protectant s at his next visit. Loose stool 861286615 R1 9.5 For now he is just going to watch his diet. He might try the very low dose psyllium again down the road. We could also consider low dose cholestyra mine or imodium. Elevated blood-pressure reading without diagnosis of hypertension 544247501 R03.0 His pressure was 147/97 on his first visit and 148/95 today. I discussed with him that this actually puts him in the hypertensi ve range. He needs to change the things he can (exercise, diet, stress) but a lot of his risk factors are things he cannot change. I advised that he needs to purchase an upper arm BP cuff (not use the wrist cuff) and check his pressures 2 - 3 times weekly at different times during the day. He needs to record these and follow up with his PCP within the next few months. I discussed the usp consequenc es of having untreated hypertensi on for years. [id number] Kathya Smith MD Main Office [address] [place] [address] 08/09/2019 15:39:21 08/09/2019 16:21:48 Pile easily reducible 903707060 K64.1 Stage 2 - 3 internal hemorrhoid s: He is doing well with infrared coagulatio n. His 3rd treatment was done today on the RA. External hemorrhoids 239 16122 K64.4 These have improved with IRC. He understand s the only way to directly treat external hemorrhoid s would be with surgery and he does not wish to pursue this and his hemorrhoid s are not bad enough to require surgery. Perianal dermatitis 2754 82622 L30.9 This is resolved with the Lotrisone Cream. He can use the Desitin (zinc oxide) if he feels he needs it. Loose stool 420622624 R1 9.5 He is doing well with just treatment his hemorrhoid s, dermatitis and taking very low dose psyllium. He of course also needs to continue eating a high fiber diet and drinking plenty of water. [id number] Kathya Smith MD Main Office [address] [facility] [address] [place] [address] 09/06/2019 15:50:56 09/06/2019 16:27:17 Pile easily reducible 476949396 K64.1 Stage 2 - 3 internal hemorrhoid s: He is doing well with infrared coagulatio n. His 4th treatment was done today on the RP. External hemorrhoids 239 70414 K64.4 These have improved with IRC. He understand s the only way to directly treat external hemorrhoid s would be with surgery and he does not wish to pursue this and his hemorrhoid s are not bad enough to require surgery. Perianal dermatitis 2754 52744 L30.9 This is doing well. He knows he should use the zinc oxide if he needs it. Elevated blood-pressure reading without diagnosis of hypertension 560827470 R03.0 His readings have been consistent ly elevated at home and have been high here. I advised he should see his PCP to get this treated. He is trying to watch his diet and get routine exercise. Loose stool 683930327 R1 9.5 He is doing well with just treatment his hemorrhoid s and dermatitis . I again advised that he should consider taking very low dose psyllium to bulk his BM's somewhat and this might help with cleaning. He of course also needs to continue eating a high fiber diet and drinking plenty of water. [id number] Kathya Smith MD Main Office [address] [place] [address] 09/20/2019 15:54:09 09/20/2019 16:18:12 Pile easily reducible 075938868 K64.1 Stage 2 - 3 internal hemorrhoid s: He is doing well with infrared coagulatio n. His 5th treatment was done today on the LL and RA internal hemorrhoid s. External hemorrhoids 239 53985 K64.4 These have improved with IRC. He understand s the only way to directly treat external hemorrhoid s would be with surgery and he does not wish to pursue this and his hemorrhoid s are not bad enough to require surgery. Perianal dermatitis 2754 21726 L30.9 This is doing well. He knows he should use the zinc oxide if he needs it. Loose stool 632208662 R1 9.5 He is doing well with just treating his hemorrhoid s and dermatitis . He is doing well with taking very low dose psyllium. I advised he should adjust his dose as needed to maintain daily and soft (Burlington Scale type 4) BM's. He of course also needs to continue eating a high fiber diet and drinking plenty of water. [id number] Kathya Smith MD Main Office [address] [place] [address] 11/23/2019 15:01:22 11/23/2019 15:34:24 Pile easily reducible 588970506 K64.1 Stage 2 - 3 internal hemorrhoid s: He has done well with infrared coagulatio n. His 6th and final treatment was done today on the RP and LL internal hemorrhoid s. External hemorrhoids 239 56798 K64.4 These have improved with IRC. He understand s the only way to directly treat external hemorrhoid s would be with surgery and he does not wish to pursue this and his hemorrhoid s are not bad enough to require surgery. Loose stool 881885351 R1 9.5 He is doing well with just treating his hemorrhoid s and dermatitis . He of course needs to be eating a high fiber diet and drinking plenty of water. Essential hypertension 70102450 I10 He is taking the lisinopril and HCTZ without any side effects. I discussed the cough that can be associated with lisinopril . Health Concerns Section Related Observation LastModified by Organization Detai ls LastModified Time None Recorded Concern Status LastModified by Organization Details LastModified Time None Recorded Advance Directives Directive N: Payers Encounter Date Sequence Insurance Name Policy Number Policy Sheikh Covered Member ID Sheikh Member ID Guarantor Name 07/26/2019 1 EAST - DOS PRIOR TO 2024 - [employer] () Elliot Caron [id number] Elliot Jackson Caron 08/09/2019 1 EAST - DOS PRIOR TO 2024 - [employer] () Elliot Caron [id number] Elliot Jackson Froylanken 09/06/2019 1 EAST - DOS PRIOR TO 2024 - [employer] () Elliot Caron [id number] Elliot Jackson Froylanken 09/20/2019 1 EAST - DOS PRIOR TO 2024 - [employer] () Elliot Caron [id number] Elliot Jackson Caron 11/23/2019 1 EAST - DOS PRIOR TO 2024 - [employer] () Elliot Caron [id number] Elliot Jackson Caron Notes Date Note Type Note Provider Name and Address Organization Details Recorded Time 07/26/2019 text/html He had no proble m with the treatment and he is doing very well. He did get the Lotrisone Cream and has been using it consistently BID. His itching and irritation is significantly better. He has had less swelling and feels his skin tags are less noticeable. He has had no bleeding (I reminded him that bleeding is the #1 side effect of treatment). He tried to take the psyllium capsules but he feels they made him have even more BM's (he only took 1 capsule daily on 2 separate days that were 2 days apart). He states he did also have a stomach flu with diarrhea - his entire family had it. He admits this might have been the issue with more frequent BM's and is willing to try the psyllium again in the future. He states he has been told several times over the years that his BP is elevated. This has always been in physicians' offices and he attributes the high readings to white coat hypertension. His has a wrist BP cuff but he has never used it. He does not smoke nor drink alcohol to excess. He admits he could exercise more. His BMI is 35.7 and he knows he needs to lose weight. He does have a lot of stress with his job and family (normal stress) and admits that will not change. He does not follow up with his PCP on a routine basis for physicals. Kathya Smith MD [address] [place] [address],[address] [place] [address], [phone], [facility] 07/27/2019 14:56:43 08/09/2019 text/html He had no proble m with the last treatment and he is doing very well. He has had no irritation/itching/ discomfort. He did get some Desitin but does not feel he needs to use it. He did finish the full 2 weeks with the Lotrisone. He has had no scant bleeding. It is easy to get and stay clean after BM's. He has minimal swelling. He is taking 1 psyllium capsule daily and his BM's have been daily and soft. Kathya Smith MD [address] [place] [address],[address] [facility], [place], [address], [facility] 08/27/2019 11:08:48 09/06/2019 text/html He had no proble m with the last treatment and he is doing great. He has had no discomfort or irritation. He has not needed to use the Desitin. He has had no bleeding. He states he is much better overall. He has not been taking the psyllium because his BM's have been daily and soft. He has been checking his BP's at home and they are in the upper 130's-odyjv596's/up per 80's-low 90's consistently. He has had no CP/pressure/SOB/MELTON or neurological symptoms. Kathya Smith MD [address] [place] [address],[address], [place], [address], [facility] 09/23/2019 15:05:53 09/20/2019 text/html He had no proble m with the last treatment and he is doing really well. He has had no bleeding. He has no itching or irritation. It is easy to get and stay clean after BM's. He is taking a very low dose of psyllium and his BM's are not loose or urgent. He has not needed [place] [address] [place] [address],[address], [place], [address], [facility] 10/15/2019 01:14:59 11/23/2019 text/html He had no proble m with the last treatment and he continues to do really well. He has had no bleeding. He has minimal swelling and no discomfort. It is much easier to get and stay clean after BM's. He is very happy with how he has done with treatment. He is not taking any psyllium because he does not feel he needs to. His BM's are soft and daily with just his dietary fiber. He did see a signal circuit designer and has been diagnosed with hypertension. He is taking 10 mg of lisinopril and 12.5 mg HCTZ and is tolerating [place] well[place] [address] [place] [id number],[address], [place], [id number], [facility] 12/10/2019 21:05:16
== END 2024-11-05 16:52 | disposition home or self-care (01) ==
PROVIDERS: Emergency Provider Emergency Medicine
DX: S82.831A Other fracture of upper and lower end of right fibula, initial encounter for closed fracture (principal); Z87.891 Personal history of nicotine dependence; W00.0XXA Fall on same level due to ice and snow, initial encounter
CPT/HCPCS: 29515; 73610; 96372; 99284; A9270; J1885